=== PATIENT | male | born 1955 | race Caucasian/White ===

== ENCOUNTER 2020-10-06 10:25 | Emergency (ER) | payer BC, SELFPAY ==
[2020-10-06 10:40] VITALS: BP 150/86; PULSE 87; RESP 18; TEMP 36.6; O2SAT 98; BMI 30.5
--- NOTE | 2020-10-06 11:06 | HMH.EDUTC ---
[facility] [place] Clinical Impression: Exposure to COVID-19 virus Disposition: Home, Self-Care Condition on Discharge: Good Instructions: DI for COVID-19 (Suspected or Confirmed ), COVID-19: Testing and Tracing, Preventing the Spread of Coronavirus Discharge Instructions Additional Instructions: *Monitor Temp, Over the counter Motrin or Tylenol as directed/as needed Tylenol every 4 hours and Motrin every 6 hours (as long as your family doctor has told you that you can take it) for fever or pain. and straight to ER if unable to lower temp less than 101.0 after medication given Follow up IMMEDIATELY for new or worsening symptoms or no Noticeable improvement over the next 48-72 hours. 911 for difficulty breathing or swallowing You were tested for today for COVID19 your test result should be back in the next 24-48 hours, you may call to the [facility] to see if your test results are back in the next 48 hours [phone] [facility] hours are 9am-9pm You was given a handout with instructions for Self Quarantine and Self isolation for while you wait on test results and what to do if they are positive If you are positive the Health Dept will be contacting you also Referrals: Lena Callahan APRN [Primary Care Provider] - As needed Time of Disposition: 11:07 Medical Decision Making - Angelito Inquiry Pt receiving controlled substance: No Angelito was queried for this patient: No Vital Signs: 10/06/20 10:40 Temperature 97.8 F Temperature Source Oral Pulse Rate [Right Brachial] 87 Respiratory Rate 18 Blood Pressure [Right Arm] 150/86 H Blood Pressure Mean [Right Arm] 107 Blood Pressure Source [Right Arm] Automatic Cuff Blood Pressure Position [Right Arm] Sitting 02 Sat by Pulse Oximetry 98 Oxygen Delivery Method Room Air Orders (Tests/Meds): ORDERS Category Date Time Status Covid-19 Nasal PCR ([facility]) Routine Lab 10/06/20 10:28 [place] [facility] [place] - General Stated complaint: Covid test Time Seen by Provider: 10/06/20 11:06 Mode of Arrival: Ambulatory Source of Information: Patient Limitations: No Limitations Description of Symptoms (Recalled from Triage Doc. by RN): COVID TEST D/T EXPOSURE; DENIES SYMPTOMS HEENT Symptoms (Recalled from RN notes): No Resp Symptoms (Recalled from RN notes): No Skin Symptoms (Recalled from RN notes): No MS Symptoms (Recalled from RN notes): No Functional Status (Recalled from RN notes): WNL - History of Present Illness Provider Complaint: Darrick states that he was recently around a co-worker that has since tested positive for COVID State that he is not having any symptoms but wanted to get tested - Related Data Allergies Allergy/AdvReac Type Severity Reaction Status Date / Time No Known Allergies Allergy Verified 10/06/20 11:01 - Worker's Comp Is this a Worker's Comp case?: No [facility] History - Hepatitis A Screen Drug use history?: No High risk sexual behaviors?: No History of sexually transmitted infection?: No Currently employed?: No Childcare worker?: No Do you have indoor plumbing?: Yes Do you have electricity?: Yes Attestation statement:: This patient has been screened for Hepatitis A risk factors. I have reviewed the patient's past medical history: Yes - Social History Alcohol Intake: never Occupational Status: other ROS Obtained: Yes All systems reviewed & no additional complaints, Yes Systems reviewed as appropriate & no additional complaints - Constitutional Constitutional: Reports system reviewed and no additional complaints, except as docu, Denies body ache, Denies chills, Denies fever(s), Denies headache(s) - ENT Ears, Nose, Mouth, and Throat: Reports system reviewed and no additional complaints, except as docu, Denies sinus pain, Denies sinus pressure, Denies sore throat - Cardiovascular Cardiovascular: Reports system reviewed and no additional complaints, except as docu Physical Exam - General General appearance: alert, in no apparent distress - EN
[2020-10-06 11:09] VITALS: BP 150/86; PULSE 87; RESP 18; TEMP 36.6; O2SAT 98
== END 2020-10-06 11:10 | disposition home or self-care (01) ==
PROVIDERS: Emergency Provider Nurse Practitioner; PCP Nurse Practitioner Family
DX: Z20.822 Contact with and (suspected) exposure to COVID-19 (principal)
CPT/HCPCS: 99202; G0463; U0003

== ENCOUNTER → 2023-06-03 13:03 | Outpatient (CLI) | payer MEDICARE, OTHER, SELFPAY ==
[2023-06-03 12:12] LABS: Chloride 105 mmol/L (98-107); Sodium 144 mmol/L (136-145)
[2023-06-03 12:14] LABS: Alanine Aminotransferase 28 U/L (12-78); Aspartate Amino Transferase 29 U/L (17-59); Blood Urea Nitrogen 26 mg/dl (9-20); Estimated Glomerular Filt Rate 61 ml/min (>60); GFR (African American) 73 ML/MIN (>60)
[2023-06-03 12:15] LABS: Albumin Level 4.6 g/dl (3.5-5.0); Albumin/Globulin Ratio 1.4 (1.1-1.8); Alkaline Phosphatase 119 U/L (38-126); Bilirubin,Total 0.9 mg/dl (0.2-1.3); Carbon Dioxide 27 mmol/L (22.0-30.0); Chol/HDL Ratio 4.1 (1-3.5); Cholesterol 130 mg/dl (140-200); Globulin 3.4 g/dL (1.3-3.2); Glucose 160 mg/dl (74-100); HDL Cholesterol 32 mg/dl (40-60); Triglycerides 189 mg/dl (30-150); VLDL Cholesterol 38 mg/dL (0-40)
[2023-06-03 12:25] LABS: Anion Gap 17.5 mEq/L (5-15); Potassium 5.5 mmoL/L (3.5-5.1)
[2023-06-03 12:26] LABS: Direct LDL Cholesterol 51.78 mg/dL (100-129)
== END ==
PROVIDERS: PCP Nurse Practitioner Family; Visit Provider Nurse Practitioner Family
DX: E11.9 Type 2 diabetes mellitus without complications (principal); E78.5 Hyperlipidemia, unspecified; I10 Essential (primary) hypertension; Z79.84 Long term (current) use of oral hypoglycemic drugs
CPT/HCPCS: 80053; 80061

== ENCOUNTER → 2023-06-17 09:00 | Outpatient (CLI) | payer MEDICARE, OTHER, SELFPAY ==
[2023-06-17 17:55] LABS: Potassium 5.1 mmoL/L (3.5-5.1)
[2023-06-17 18:48] LABS: Hemoglobin A1C 7.5 % (4.0-6.0)
== END ==
PROVIDERS: PCP Nurse Practitioner Family; Visit Provider Nurse Practitioner Family
DX: E87.5 Hyperkalemia (principal); E11.9 Type 2 diabetes mellitus without complications; Z79.84 Long term (current) use of oral hypoglycemic drugs
CPT/HCPCS: 83036; 84132

== ENCOUNTER 2023-10-06 12:38 | Outpatient (CLI) | payer MEDICARE, OTHER, SELFPAY ==
[2023-10-06 13:25] LABS: Alanine Aminotransferase 31 U/L (12-78); Albumin Level 4.7 g/dl (3.5-5.0); Albumin/Globulin Ratio 1.4 (1.1-1.8); Alkaline Phosphatase 101 U/L (38-126); Anion Gap 14.1 mEq/L (5-15); Aspartate Amino Transferase 28 U/L (17-59); Bilirubin,Total 0.9 mg/dl (0.2-1.3); Blood Urea Nitrogen 23 mg/dl (9-20); Calcium 9.3 mg/dl (8.4-10.2); Carbon Dioxide 22 mmol/L (22.0-30.0); Chloride 103 mmol/L (98-107); Chol/HDL Ratio 4.7 (1-3.5); Cholesterol 170 mg/dl (140-200); Estimated Glomerular Filt Rate 84 ml/min (>60); GFR (African American) 102 ML/MIN (>60); Globulin 3.3 g/dL (1.3-3.2); Glucose 162 mg/dl (74-100); HDL Cholesterol 36 mg/dl (40-60); Potassium 5.1 mmoL/L (3.5-5.1); Sodium 134 mmol/L (136-145); Triglycerides 206 mg/dl (30-150); VLDL Cholesterol 41 mg/dL (0-40)
[2023-10-06 13:41] LABS: Direct LDL Cholesterol 72.24 mg/dL (100-129)
[2023-10-06 13:58] LABS: Hemoglobin A1C 7.3 % (4.0-6.0)
== END 2023-10-06 23:59 ==
LOC: LAB.DROPOF 12:39
PROVIDERS: PCP Nurse Practitioner Family; Visit Provider Nurse Practitioner Family
DX: E11.9 Type 2 diabetes mellitus without complications (principal); E78.5 Hyperlipidemia, unspecified; I10 Essential (primary) hypertension; Z79.84 Long term (current) use of oral hypoglycemic drugs
CPT/HCPCS: 80053; 80061; 83036

== ENCOUNTER 2024-01-11 13:07 | Outpatient (CLI) | payer MEDICARE, OTHER, SELFPAY ==
[2024-01-11 13:17] LABS: Microalbumin < 6.000 mg/L (0-16.7)
[2024-01-11 13:36] LABS: Chloride 107 mmol/L (98-107); Potassium 4.5 mmoL/L (3.5-5.1); Sodium 141 mmol/L (136-145)
[2024-01-11 13:39] LABS: Alanine Aminotransferase 24 U/L (12-78); Albumin Level 4.3 g/dl (3.5-5.0); Albumin/Globulin Ratio 1.5 (1.1-1.8); Alkaline Phosphatase 102 U/L (38-126); Anion Gap 13.5 mEq/L (5-15); Aspartate Amino Transferase 25 U/L (17-59); Bilirubin,Total 0.9 mg/dl (0.2-1.3); Blood Urea Nitrogen 21 mg/dl (9-20); Carbon Dioxide 25 mmol/L (22.0-30.0); Cholesterol 163 mg/dl (140-200); Estimated Glomerular Filt Rate 75 ml/min (>60); GFR (African American) 90 ML/MIN (>60); Globulin 2.9 g/dL (1.3-3.2); Total Protein,Serum 7.2 g/dl (6.3-8.2); Triglycerides 186 mg/dl (30-150); VLDL Cholesterol 37 mg/dL (0-40)
[2024-01-11 13:40] LABS: Calcium 9.4 mg/dl (8.4-10.2); Chol/HDL Ratio 4.4 (1-3.5); Glucose 165 mg/dl (74-100); HDL Cholesterol 37 mg/dl (40-60)
[2024-01-11 13:51] LABS: Direct LDL Cholesterol 75.11 mg/dL (100-129)
[2024-01-11 14:23] LABS: Hemoglobin A1C 7.8 % (4.0-6.0)
== END 2024-01-11 23:59 | disposition home or self-care (01) ==
LOC: LAB.DROPOF 13:08
PROVIDERS: PCP Nurse Practitioner Family; Visit Provider Nurse Practitioner Family
DX: E11.9 Type 2 diabetes mellitus without complications (principal); Z79.84 Long term (current) use of oral hypoglycemic drugs
CPT/HCPCS: 80053; 80061; 82043; 83036

== ENCOUNTER 2024-04-06 13:35 | Outpatient (CLI) | payer MEDICARE, OTHER, SELFPAY ==
[2024-04-06 13:01] LABS: Basophils # 0.1 K/mm3 (0-0.2); Basophils % 0.8 % (0.1-2.0); Eosinophils # 0.2 K/mm3 (0.0-0.4); Eosinophils % 2.4 % (0.1-12.0); Hematocrit 53.3 % (42.0-52.0); Hemoglobin 17.2 g/dL (14.1-18.0); Lymphocytes # 1.7 K/mm3 (0.7-4.5); Lymphocytes % 23.5 % (10-50); Mean Corpuscular HGB Conc 32.2 g/dL (31.8-35.4); Mean Corpuscular Hemoglobin 28.9 pg (27.0-31.2); Mean Corpuscular Volume 89.8 fl (80-94); Mean Platelet Volume 9.1 fl (7.4-10.4); Monocytes # 0.5 K/mm3 (0.1-1.0); Monocytes % 6.1 % (1.7-9.3); Neutrophils # 4.9 K/mm3 (1.8-7.8); Neutrophils % 67.3 % (37.0-80.0); Platelet Count 203 K/mm3 (142-424); Red Blood Count 5.93 M/mm3 (4.60-6.20); Red Cell Distribution Width 15.6 % (11.5-17.5); White Blood Count 7.3 K/mm3 (4.8-10.8)
[2024-04-06 15:00] LABS: Alanine Aminotransferase 37 U/L (12-78); Albumin Level 4.8 g/dl (3.5-5.0); Albumin/Globulin Ratio 1.4 (1.1-1.8); Alkaline Phosphatase 100 U/L (38-126); Anion Gap 13.9 mEq/L (5-15); Aspartate Amino Transferase 33 U/L (17-59); Bilirubin,Total 0.8 mg/dl (0.2-1.3); Blood Urea Nitrogen 22 mg/dl (9-20); Calcium 9.7 mg/dl (8.4-10.2); Carbon Dioxide 26 mmol/L (22.0-30.0); Chloride 106 mmol/L (98-107); Chol/HDL Ratio 5.5 (1-3.5); Cholesterol 182 mg/dl (140-200); Estimated Glomerular Filt Rate 75 ml/min (>60); GFR (African American) 90 ML/MIN (>60); Globulin 3.5 g/dL (1.3-3.2); Glucose 128 mg/dl (74-100); HDL Cholesterol 33 mg/dl (40-60); Potassium 4.9 mmoL/L (3.5-5.1); Sodium 141 mmol/L (136-145); Total Protein,Serum 8.3 g/dl (6.3-8.2); Triglycerides 303 mg/dl (30-150); VLDL Cholesterol 61 mg/dL (0-40)
[2024-04-06 15:11] LABS: Direct LDL Cholesterol 66.64 mg/dL (100-129)
[2024-04-06 15:27] LABS: Prostate Specific Ag Screen 1.1 ng/ml (0.0-4.0)
[2024-04-06 15:33] LABS: Hemoglobin A1C 7.1 % (4.0-6.0)
[2024-04-06 16:49] LABS: Microalbumin < 6.000 mg/L (0-16.7)
== END 2024-04-06 23:59 | disposition home or self-care (01) ==
LOC: LAB.DROPOF 13:35
PROVIDERS: PCP Nurse Practitioner Family; Visit Provider Nurse Practitioner Family
DX: E78.2 Mixed hyperlipidemia (principal); E11.9 Type 2 diabetes mellitus without complications; I10 Essential (primary) hypertension; Z12.5 Encounter for screening for malignant neoplasm of prostate
CPT/HCPCS: 80053; 80061; 82043; 83036; 85025; G0103

== ENCOUNTER 2024-07-06 14:03 | Outpatient (CLI) | payer MEDICARE, OTHER, SELFPAY ==
[2024-07-06 13:07] LABS: Albumin Level 4.6 g/dl (3.5-5.0); Chloride 103 mmol/L (98-107); Sodium 142 mmol/L (136-145)
[2024-07-06 13:08] LABS: Potassium 4.5 mmoL/L (3.5-5.1)
[2024-07-06 13:10] LABS: Alanine Aminotransferase 17 U/L (12-78); Albumin/Globulin Ratio 1.4 (1.1-1.8); Anion Gap 14.5 mEq/L (5-15); Aspartate Amino Transferase 21 U/L (17-59); Blood Urea Nitrogen 14 mg/dl (9-20); Carbon Dioxide 29 mmol/L (22.0-30.0); Estimated Glomerular Filt Rate 75 ml/min (>60); GFR (African American) 90 ML/MIN (>60); Globulin 3.2 g/dL (1.3-3.2); Total Protein,Serum 7.8 g/dl (6.3-8.2)
[2024-07-06 13:11] LABS: Alkaline Phosphatase 80 U/L (38-126); Bilirubin,Total 0.7 mg/dl (0.2-1.3); Calcium 9.8 mg/dl (8.4-10.2); Chol/HDL Ratio 4.3 (1-3.5); Cholesterol 146 mg/dl (140-200); Glucose 135 mg/dl (74-100); HDL Cholesterol 34 mg/dl (40-60); Triglycerides 169 mg/dl (30-150); VLDL Cholesterol 34 mg/dL (0-40)
[2024-07-06 13:22] LABS: Direct LDL Cholesterol 61.05 mg/dL (100-129)
[2024-07-06 13:42] LABS: Thyroid Stimulating Hormone 2.39 uIU/mL (0.465-4.68)
[2024-07-06 14:48] LABS: Microalbumin/Creatinine Ratio 12.3
[2024-07-06 14:50] LABS: Creatinine,Urine Random 56 mg/dL (Not Estab.)
[2024-07-07 12:50] LABS: Hemoglobin A1C 7.2 % (4.0-6.0)
== END 2024-07-06 23:59 | disposition home or self-care (01) ==
LOC: LAB.DROPOF 14:04
PROVIDERS: PCP Nurse Practitioner Family; Visit Provider Nurse Practitioner Family
DX: I10 Essential (primary) hypertension (principal); E78.5 Hyperlipidemia, unspecified; E11.9 Type 2 diabetes mellitus without complications
CPT/HCPCS: 80053; 80061; 82043; 82570; 83036; 84443

== ENCOUNTER 2024-10-17 16:55 | Outpatient (CLI) | payer MEDICARE, OTHER, SELFPAY ==
[2024-10-17 11:49] LABS: Creatinine,Urine Random 51 mg/dL (Not Estab.); Microalbumin < 6.000 mg/L (0-16.7)
[2024-10-17 11:58] LABS: Albumin Level 4.3 g/dl (3.5-5.0); Chloride 105 mmol/L (98-107); Potassium 4.8 mmoL/L (3.5-5.1); Sodium 139 mmol/L (136-145)
[2024-10-17 12:01] LABS: Alanine Aminotransferase 29 U/L (12-78); Albumin/Globulin Ratio 1.5 (1.1-1.8); Alkaline Phosphatase 89 U/L (38-126); Anion Gap 15.8 mEq/L (5-15); Aspartate Amino Transferase 27 U/L (17-59); Bilirubin,Total 0.8 mg/dl (0.2-1.3); Blood Urea Nitrogen 17 mg/dl (9-20); Carbon Dioxide 23 mmol/L (22.0-30.0); Cholesterol 124 mg/dl (140-200); Estimated Glomerular Filt Rate 75 ml/min (>60); GFR (African American) 90 ML/MIN (>60); Globulin 2.8 g/dL (1.3-3.2); Glucose 145 mg/dl (74-100); Total Protein,Serum 7.1 g/dl (6.3-8.2); Triglycerides 228 mg/dl (30-150); VLDL Cholesterol 46 mg/dL (0-40)
[2024-10-17 12:02] LABS: Chol/HDL Ratio 4.8 (1-3.5); HDL Cholesterol 26 mg/dl (40-60)
[2024-10-17 12:12] LABS: Direct LDL Cholesterol 46.29 mg/dL (100-129)
[2024-10-17 12:26] LABS: Hemoglobin A1C 6.9 % (4.0-6.0)
== END 2024-10-17 23:59 | disposition home or self-care (01) ==
LOC: LAB.DROPOF 16:55
PROVIDERS: PCP Nurse Practitioner Family; Visit Provider Nurse Practitioner Family
DX: E11.9 Type 2 diabetes mellitus without complications (principal); I10 Essential (primary) hypertension; E78.2 Mixed hyperlipidemia; E87.5 Hyperkalemia
CPT/HCPCS: 80053; 80061; 82043; 82570; 83036

== ENCOUNTER 2025-01-02 12:42 | Outpatient (CLI) | payer MEDICARE, OTHER, SELFPAY ==
--- NOTE | 2025-01-02 13:00 | CA_ITS ---
FINAL REPORT CLINICAL HISTORY: HLD, HTN, DM, smoker, edema in bilateral foot and ankle. FINDINGS: Right lower extremity, flow velocities (cm per second): Common femoral artery: 163 Proximal SFA: 84 Distal SFA: 44 Proximal PROCESS WORKER: 26 Distal PROCESS WORKER: 16 Peroneal mid: 22 Left lower extremity, flow velocities (cm per second): Common femoral artery: 127 Proximal SFA: 134 Distal SFA: 37 Proximal PROCESS WORKER: 37 Distal PROCESS WORKER: 32 Peroneal mid: 32 There are monophasic waveforms from the distal SFA through the tibial arteries. Findings are consistent with significant adductor canal stenoses bilaterally. IMPRESSION: Monophasic waveforms from the bilateral, distal SFA through the tibial arteries consistent with significant adductor canal stenoses. Consider CTA or catheter directed angiography for further evaluation. Correlate with ankle-brachial indices. Reviewed, Interpreted and Dictated by Jose Smith MD Transcribed by Betzy Mims Authenticated and [facility]
[2025-01-03 14:36] LABS: Albumin Level 4.8 g/dl (3.5-5.0); Chloride 101 mmol/L (98-107); Potassium 5.6 mmoL/L (3.5-5.1); Sodium 142 mmol/L (136-145)
[2025-01-03 14:39] LABS: Alanine Aminotransferase 30 U/L (12-78); Albumin/Globulin Ratio 1.5 (1.1-1.8); Alkaline Phosphatase 95 U/L (38-126); Anion Gap 24.6 mEq/L (5-15); Aspartate Amino Transferase 29 U/L (17-59); Blood Urea Nitrogen 15 mg/dl (9-20); Calcium 9.4 mg/dl (8.4-10.2); Carbon Dioxide 22 mmol/L (22.0-30.0); Cholesterol 145 mg/dl (140-200); Estimated Glomerular Filt Rate 75 ml/min (>60); GFR (African American) 90 ML/MIN (>60); Globulin 3.3 g/dL (1.3-3.2); Glucose 56 mg/dl (74-100); Total Protein,Serum 8.1 g/dl (6.3-8.2); Triglycerides 224 mg/dl (30-150); VLDL Cholesterol 45 mg/dL (0-40)
[2025-01-03 14:40] LABS: Chol/HDL Ratio 4.1 (1-3.5); HDL Cholesterol 35 mg/dl (40-60)
[2025-01-03 15:10] LABS: Thyroid Stimulating Hormone 2.39 uIU/mL (0.465-4.68)
[2025-01-03 15:11] LABS: Microalbumin/Creatinine Ratio 13.1
[2025-01-03 15:31] LABS: Creatinine,Urine Random 63 mg/dL (Not Estab.); Hemoglobin A1C 6.7 % (4.0-6.0)
== END 2025-01-02 23:59 | disposition home or self-care (01) ==
LOC: RT 12:44
PROVIDERS: PCP Nurse Practitioner Family; Visit Provider Nurse Practitioner Family
DX: I73.9 Peripheral vascular disease, unspecified (principal); R60.9 Edema, unspecified; E11.9 Type 2 diabetes mellitus without complications; E78.5 Hyperlipidemia, unspecified; I10 Essential (primary) hypertension
CPT/HCPCS: 80053; 80061; 82043; 82570; 83036; 84443; 93925

== ENCOUNTER 2025-01-10 09:04 | Outpatient (CLI) | payer MEDICARE, OTHER, SELFPAY ==
[2025-01-11 09:50] LABS: Microalbumin/Creatinine Ratio 19.7
[2025-01-11 09:53] LABS: Creatinine,Urine Random 46 mg/dL (Not Estab.)
--- OUTSIDE RECORDS SUMMARY | 2025-04-13 10:45 | XMS_ITS | Encounter Summary ---
Author Organization Healthcare Address [address] [facility] [place] [address] Care Team Providers Care Hot Tamale Worker Name Role Phone Lena Callahan APRN Primary Care Provider +1- [phone] Encounter Details Date Type Department Care Team (Late st Contact Info) Description 02/05/2023 Ophth Exam [facility] [address] [place] [address] Anup Mg MD [address] [place] [address] Social History Tobacco Use Types Packs/Day Years [...] on filedocumented in this encounter Care Teams Hot Tamale Worker Relationship Specialty Start Date End Date Lena Callahan, HULLER OPERATOR [address] [id number] PCP - General 02/05/23 documented as of this encounter
--- OUTSIDE RECORDS SUMMARY | 2025-04-13 10:45 | XMS_ITS | Clinical Summary ---
Author Organization [facility] Address [address] [place] [address] Care Team Providers Care Auditing Control Clerk Name Role Phone Lena Callahan JUAN F Primary Care Provider +1- [phone] Allergies No known active allergies Medications erythromycin [...] 2007 [facility]-Zoster Vaccines (1 of 2) 2007 [id number] Vaccine (3 - season) 2024 10/10/2021, 12/05/2020 [...] Antibody Negative Negative 02/05/2023 6:39 PM EDT [facility] Blood Venous blood specimen / Unknown Venipuncture / Unknown 02/05/2023 5:26 PM EDT 02/05/2023 5:56 PM EDT Suresh Quarles MD LAB BLOOD ORDERABLES Final Result [facility] [address] [place] [address] from Last 3 Months or Most Recently Relevant to Health Maintenance Insurance MEDICARE Care Teams Auditing Control Clerk Relationship Specialty Start Date End Date Lena Callahan APRN [address] [place] [address] PCP - General 02/05/23
== END 2025-01-11 23:59 | disposition home or self-care (01) ==
LOC: LAB.DROPOF 04-13 10:41
PROVIDERS: PCP Nurse Practitioner Family; Visit Provider Nurse Practitioner Family
DX: E11.9 Type 2 diabetes mellitus without complications (principal)
CPT/HCPCS: 82043; 82570

== ENCOUNTER 2025-01-10 13:23 | Outpatient (CLI) | payer MEDICARE, OTHER, SELFPAY ==
[2025-01-10 19:12] LABS: Potassium 4.6 mmoL/L (3.5-5.1)
== END 2025-01-10 23:59 | disposition home or self-care (01) ==
LOC: LAB.DROPOF 01-11 12:31
PROVIDERS: PCP Nurse Practitioner Family; Visit Provider Nurse Practitioner Family
DX: E87.5 Hyperkalemia (principal)
CPT/HCPCS: 84132

== ENCOUNTER 2025-01-23 12:31 | Outpatient (CLI) | payer MEDICARE, OTHER, SELFPAY ==
--- NOTE | 2025-01-23 | CA_ITS ---
APPROVED REPORT EXAM: Comprehensive 2D, Doppler, and color-flow Echocardiogram Charge Weigher: Eboni Cameron RT(R) Ht: 5 ft 7 in Wt: 195lbs BSA: 2.00 BP: 144/74 mmHg Indications: PAD, claudication, abn EKG, smoker, DM, edema, evaluate LV function. Echo Enhancing Agent Indication: Endocardial border delineation Agent(s) / Amount(s) Used: Definity 2 cc 2D Dimensions Left Atrium 4.00 cm M: 3.0 - 4.0 LVEF (Durbin's) 29.00 % M: 52 - 72 LVOT 2.32 cm (M/F) 1.5-2.5 LV Volume 166.50 mL M: 62 - 150 LV Volume Index 83.3 mL/m2 M: 34 - 74 LA Volume 42.30 mL LA Volume Index 21.15 mL/m2 (M/F) 16-34 EF AP4 28.10 % EF AP2 28.5 % EF BP 29.0 % GL Strain -8.9 % M-Mode Dimensions RVDd 2.92 cm (0.9-2.6) LVDd 5.68 cm (3.5-5.7) Ao Diam 3.54 cm (2.0-3.7) LVDs 4.32 cm (3.5-5.7) IVSd 0.97 cm (0.6-1.1) PWd 0.89 cm (0.6-1.1) EF (Teich) 47.10% FS 23.90% EDV (Teich) 158.80 mL ESV (Teich) 84.00 mL LV Diastology E Decel Time 150 (160-240 msec) E/A Ratio 1.2 MED E' 4.6 (>= 7 cm/sec) E'/MED E' Ratio 22.98 (<= 14) LAT E' 5.2 (>= 10 cm/sec) E/LAT E' Ratio 20.33 (<= 14) Mitral Valve MV E Max Geovanny. 106.0 (40-130 cm/s) MV A Velocity 88.0 (40-130 cm/s) E/A Ratio 1.19 MV Decel. Time 150 (160-240 ms) Left Ventricle The left ventricle is normal size. Left ventricular systolic function is severely decreased. There is increased LV wall thickness. There is severe global hypokinesis. The anterior and anterolateral LV dunham are nearly akinetic. Grade 2 diastolic dysfunction is present. LVEF is 25-30%. Right Ventricle The right ventricle is normal size. The right ventricular systolic function is normal. Atria Left atrium is moderately dilated. Right atrium is mildly dilated. There is no Doppler evidence of interatrial shunt. Aortic Valve The aortic valve is mildly thickened. There is no aortic valvular stenosis. Trace aortic regurgitation. Mitral Valve The mitral valve is mildly thickened. No evidence of mitral valve stenosis. Mild to moderate mitral regurgitation. Tricuspid Valve Tricuspid valve is grossly normal in structure and function. Trace tricuspid regurgitation. There is insufficient TR jet to estimate RVSP. Pulmonic Valve The pulmonary valve is normal in structure. Trace pulmonic regurgitation. Great Vessels The aortic root is normal in size. IVC is normal in size and collapses >50% with inspiration. Pericardium There is no pericardial effusion. Other Information Study Quality: Fair Conclusion Severe reduction in LV systolic function (LVEF 25-30%). Grade 2 diastolic dysfunction is present. Akinesis of the anterior and anterolateral LV dunham. Biatrial dilation. Mild to moderate MR. Electronically signed by : Soni Dickerson MD 01/23/2025 16:56:18
[2025-01-23] MEDS: DEFINITY US ECHO CONTRAST 2ML INJ 2 MG IV (13:48)
== END 2025-01-23 23:59 | disposition home or self-care (01) ==
LOC: RT 12:32
PROVIDERS: PCP Nurse Practitioner Family; Visit Provider Nurse Practitioner Family
DX: I51.7 Cardiomegaly (principal); I34.0 Nonrheumatic mitral (valve) insufficiency; R60.0 Localized edema; R94.31 Abnormal electrocardiogram [ECG] [EKG]
CPT/HCPCS: 93306; Q9957

== ENCOUNTER 2025-01-24 11:35 | Observation (INO) | payer MEDICARE, OTHER, SELFPAY ==
[2025-01-24] VITALS (22 sets, daily range): BP systolic 118–148; BP diastolic 61–88; PULSE 70–84; RESP 16–20; TEMP 36.4–36.8; O2SAT 92–99; BMI 30.5
[2025-01-24 08:25] LABS: Basophils % 0.4 % (0.1-2.0); Eosinophils # 0.1 Kmm3 (0.0-0.4); Eosinophils % 1.6 % (0.1-12.0); Hematocrit 51.5 % (42.0-52.0); Hemoglobin 16.1 g/dL (14.1-18.0); Lymphocytes # 1.8 K/mm3 (0.7-4.5); Lymphocytes % 22.9 % (10-50); Mean Corpuscular HGB Conc 31.3 g/dL (31.8-35.4); Mean Corpuscular Hemoglobin 27.2 pg (27.0-31.2); Mean Corpuscular Volume 87.1 fl (80-94); Mean Platelet Volume 9.4 fl (7.4-10.4); Monocytes # 0.6 K/mm3 (0.1-1.0); Monocytes % 7.9 % (1.7-9.3); Neutrophils # 5.4 K/mm3 (1.8-7.8); Neutrophils % 67.1 % (37.0-80.0); Nucleated Red Blood Cells # 0 10^3/uL; Nucleated Red Blood Cells % 0 %; Platelet Count 187 K/mm3 (142-424); Red Blood Count 5.91 M/mm3 (4.60-6.20); Red Cell Distribution Width 16.5 % (11.5-17.5); Red Cell Distribution Width-SD 50.8 fL
[2025-01-24 08:34] LABS: Chloride 105 mmol/L (98-107); Potassium 4.1 mmoL/L (3.5-5.1); Sodium 141 mmol/L (136-145)
[2025-01-24 08:37] LABS: Blood Urea Nitrogen 14 mg/dl (9-20); Creatinine Clearance Estimated 90 mL/min (50-200); Estimated Glomerular Filt Rate 75 ml/min (>60); GFR (African American) 90 ML/MIN (>60)
[2025-01-24 08:38] LABS: Anion Gap 12.1 mEq/L (5-15); Calcium 9.4 mg/dl (8.4-10.2); Carbon Dioxide 28 mmol/L (22.0-30.0); Glucose 152 mg/dl (74-100)
--- NOTE | 2025-01-24 08:42 | SUR.PREOP ---
[facility] Card[facility] speaking with patient on the phone regarding possible left heart cath this date.
--- NOTE | 2025-01-24 08:47 | SUR.PREOP ---
pt's at bedside and updated on plan of care.
--- NOTE | 2025-01-24 09:13 | IR_ITS ---
APPROVED REPORT Patient Location: Outpatient Life Science Teacher: Suresh Ascencio, RT (R) PROCEDURES Left heart catheterization Left ventriculogram Selective coronary angiogram Drug-eluting stent deployment to the proximal LAD Drug-eluting stent deployment to the ostial proximal first diagonal artery INDICATION Coronary artery disease, High risk abnormal Myoview, Ejection fraction 20 to 25%, Informed consent was obtained prior to the procedure. COMPLICATIONS NONE Estimated Blood Loss: LESS THAN 10 ML TECHNIQUE One percent lidocaine used to anesthetize the right anterior aspect of the wrist. The right radial artery was accessed via the Seldinger technique. A 6 Czech sheath was placed in the right radial artery. 2.5 mg of Verapamil, 800 mcg of nitroglycerin, 1mg Lidocaine and 5000 U Heparin were given through the arterial sheath. The 6 Czech JL 3 catheter was also used to perform left heart catheterization, left ventriculogram and selective coronary angiogram. At the end of the diagnostic angiogram therapeutic heparin was administered giving a therapeutic ACT and the guide catheter was placed in the left main artery followed by Choice PT extra-support wire placed down the LAD. A 2.5 x 26 mm Peng frontier stent was deployed at 20 lilia in the proximal to mid LAD reducing the stenosis to 0%. Wire was pulled back and placed into the first diagonal artery and a 2.25 x 38 mm Pneg frontier stent was placed in the ostial segment extending into the midportion of the diagonal artery and deployed at 20 lilia. Excellent angiographic results were obtained with OK-3 flow being present down the LAD and diagonal artery before and after the procedure. At the end of the procedure 800 mcg of intracoronary nitroglycerin was administered and showing excellent results. At the end the procedure the apparatus was removed the sheath was removed and hemostasis was achieved using TR banding patient was transferred to the postop putting in stable condition ANGIOGRAPHIC RESULTS The left main artery Normal The left anterior descending artery Has proximal 60 and 70% stenosis with distal 20 and 30% stenoses. A large caliber first diagonal artery has a proximal 70 to 80% stenosis The circumflex artery Gives rise to a large ramus intermedius which has an ostial proximal 40% stenosis while the diagonal artery is patent The right coronary artery Nondominant and subtotally occluded proximally. The BAI ventriculogram reveals Dilated ventricle ejection fraction 25% The left ventricular end-diastolic pressure Severely to critically elevated at 40 mmHg IMPRESSION Severe left ventricular dysfunction Successful stenting of the proximal LAD severe disease reduced to 0% with 1 drug-eluting stent Successful stenting of a large first taken artery severe disease reduced to 0% with 1 drug-eluting stent Severely elevated LVEDP PLAN 1. Plavix and aspirin 2. LDL less than 55 to be achieved with high intensity statin 3. Patient requires admission due to LV dysfunction and critically elevated LVEDP. He requires full admission with diuresis and implementation of GDMT for systolic heart failure 4. LifeVest prior to discharge home 5. After patient's cardiac status has improved the peripheral artery disease can then be evaluated 6. Cardiac rehabilitation 7. Avoidance of tobacco products 8. Tight diabetes control Electronically signed by : Petey Harrell MD 01/24/2025 11:00:19
[2025-01-24] MEDS: LIDOCAINE 1% 10ML MDV 10 ML IJ (09:57)
[2025-01-24] MEDS: NITROGLYCERIN 800MCG/8ML SYR (CATH LAB) 800 MCG IA (09:57)
[2025-01-24] MEDS: HEPARIN 1,000 UNITS/500ML NS (CATH LAB) 3000 UNIT IV (09:57)
[2025-01-24] MEDS: VERAPAMIL 2.5MG/ML 2ML VIAL 2.5 MG IV (09:58)
[2025-01-24] MEDS: 0.9 % SODIUM CHLORIDE 500 ML 25 ML IV (09:58)
[2025-01-24] MEDS: diphenhydrAMINE 50MG/ML VIAL 50 MG IV (09:58)
[2025-01-24] MEDS: HEPARIN 1,000 UNITS/ML 10ML VIAL (CATH LAB) 5000 UNIT IV (09:59)
[2025-01-24] MEDS: MIDAZOLAM HCL 1MG/ML 5ML VIAL 1 MG IV (10:28)
[2025-01-24] MEDS: FENTANYL 100MCG/2ML VIAL 50 MCG IV (10:28)
[2025-01-24] MEDS: PRASUGREL 10MG TAB 60 MG PO (11:04)
[2025-01-24] MEDS: PROPOFOL 10MG/ML 20ML VIAL 10 MG IV (11:08)
--- NOTE | 2025-01-24 11:13 | HMH.PHAINT1 ---
Pharmacy Intervention Comments: MEDICATION RECONCILIATION COMPLETED ON PATIENT USING EXTERNAL FILL HISTORY FORM PHARMACY AND LIST FROM PCP OFFICE. -RONY LISA, TOÑITOD
--- NOTE | 2025-01-24 11:16 | SUR.PHASEII ---
Dr. Harrell spoke with patients regarding POC.
--- NOTE | 2025-01-24 11:51 | PC.NURSE ---
arrived by melviner from cardiac cath lab manager
--- NOTE | 2025-01-24 12:02 | EXP.HP ---
History of Present Illness *Admission Date: 01/24/25 *Reason for visit:: chest pain, new diagnosis of heart failure *History of present illness: Mr. Hobbs is a 69-year-old male with history of diabetes, hypertension, hyperlipidemia, PAD and tobacco use disorder. He presented originally as a referral to cardiology for PAD. Echo obtained yesterday which showed reduced ejection fraction of 25 to 30%. Decision made to proceed with left heart cath due to wall motion abnormalities. Procedure performed today, tolerated well. Had chronic occlusion of his RCA. Received 1 drug-eluting stent to his proximal LAD and 1 stent to the first diagonal. Noted to have elevated LV end-diastolic pressures. Discussed case with cardiology, request admission for further management with initiation of goal-directed therapy and treatment of his acute heart failure. Patient on room air at time of arrival to the floor. Denies chest pain. No nausea or vomiting. Alert and oriented x 4 [facility] Disclaimer: The information contained in this section may have been updated after the patient was seen, as this information can be updated by other users. Medical History Abnormal ECG Edema Claudication Tendinopathy of right rotator cuff Hypertension Diabetes High cholesterol Surgical History H/O rotator cuff surgery Social History Smoking Status: Current every day smoker tobacco type: cigarettes and cigars alcohol intake: never current occupational status: other Travel in the last 8 weeks?: None Have you lived/traveled outside [place] in past 30 days?: No Contact w/someone who lives/traveled outside US past 30 days?: No Exposure to someone with infectious disease in past 14 days?: No Do you have a fever (greater than 100.4 F or 38 C)?: No Have you tested positive for COVID-19?: No Exposed to someone with COVID-19 in past 14 days?: No Do you have a sore throat?: No Do you have a cough?: No Do you have any weakness?: No Are you experiencing any nausea/vomitting?: No Do you have any diarrhea?: No Are you experiencing any unusual bleeding?: No Do you have any muscle aches/pain?: No Do you have any abdominal pain?: No Are you experiencing loss of taste or smell?: No Other Medical History Have you received the Flu Vaccine for this season: No Have you received the Pneumonia Vaccine: No Review of Systems Review of Systems Review of systems (narrative): 14 point review of systems performed, pertinent positives and negatives as per [facility] Meds Home Medications and Allergies Home Medications ?Medication ?Instructions ?Recorded ?Confirmed ?Type lancets 28 gauge (FreeStyle #100 ea 08/25/23 01/24/25 Rx Lancets) blood-glucose meter (FreeStyle #1 ea 09/23/23 01/24/25 Rx Lite Meter kit) blood-glucose sensor (Dexcom G7 #9 ea 02/24/24 01/24/25 Rx Sensor device) blood-glucose,fire extinguisher sprinkler inspector,cont #1 ea 02/24/24 01/24/25 Rx (Dexcom G7 Urgent Care Technician) blood sugar diagnostic (FreeStyle #100 ea 03/01/24 01/24/25 Rx Lite Strips) aspirin 81 mg chewable tablet 81 mg PO DAILY 30 days #30 tabs 01/24/25 Rx atorvastatin 10 mg tablet 10 mg PO DAILY 01/24/25 01/24/25 History empagliflozin 25 mg-linagliptin 5 1 tab PO DAILY 01/24/25 01/24/25 History mg tablet (Glyxambi) glyburide 5 mg tablet 5 mg PO BID 01/24/25 01/24/25 History losartan 50 mg tablet 50 mg PO DAILY 01/24/25 01/24/25 History metformin 1,000 mg tablet 1,000 mg PO DAILY 01/24/25 01/24/25 History pioglitazone 45 mg tablet 45 mg PO DAILY 01/24/25 01/24/25 History prasugrel HCl 10 mg tablet 10 mg PO DAILY 30 days #30 tabs 01/24/25 Rx (Effient) sertraline 25 mg tablet 25 mg PO DAILY 01/24/25 01/24/25 History New Prescriptions to Start Prescriptions: aspirin Petey Harrell prasugrel HCl [Effient] Petey Harrell Allergies Allergy/AdvReac Type Severity Reaction Status Date / Time semaglutide (From [facility]) Allergy Severe Blurry Verified 01/10/25 13:59 Vision Penicillins Allergy Mild Unknown Verified 01/10/25 13:59 allergy reaction Exam Data for Last 24 hours Vital signs and Labs for Last 24 Hours: Pulse Resp BP Pulse Ox O2 Del Method 73 18 129/83 94 L Room Air 01/24/25 11:45 01/24/25 11:45 01/24/25 11:45 01/24/25 11:45 01/24/25 12:00 Laboratory Results - last 24 hr 01/24/25 08:18: WBC 8.0, RBC 5.91, Hgb 16.1, Hct 51.5, MCV 87.1, MCH 27.2, MCHC 31.3 L, RDW 16.5, Plt Count 187, MPV 9.4, Neut % (Auto) 67.1, Lymph % (Auto) 22.9, [place] % (Auto) 7.9, Eos % (Auto) 1.6, Baso % (Auto) 0.4, Neut # (Auto) 5.4, Lymph # (Auto) 1.8, [place] # (Auto) 0.6, Eos # (Auto) 0.1, Baso # (Auto) 0.0, Sodium 141, Potassium 4.1, Chloride 105, Carbon Dioxide 28, Anion Gap 12.1, BUN 14, Creatinine 1.00, Estimated Creat Clear 90, Estimated GFR 75, Est GFR ( Amer) 90, Glucose 152 H, Calcium 9.4 I & O for Last 24 hours: Intake & Output 01/21/25 01/22/25 01/23/25 01/24/25 23:59 23:59 23:59 23:59 Weight 88.451 kg Constitutional Constitutional: no acute distress, average body habitus, chronically ill appearing and cooperative *Routine HEENT Exam Head: Present normocephalic Eye: Present EOMI and PERRL ENT: Present mucous membranes moist *Routine Neck Exam Neck: Present supple; Absent lymphadenopathy *Routine Respiratory Exam Respiratory: Present CTA bilaterally; Absent rhonchi, stridor, wheezes or crackles *Routine Cardiovascular Exam Cardiovascular: Present RRR *Routine Abdominal Exam Abdominal: Present soft and normoactive bowel sounds; Absent tenderness *Routine Rectal Exam Rectal:: deferred *Routine Genitalia Exam Genitalia:: deferred *Routine Extremities Exam Extremities: Present edema (Trace lower extremity); Absent cyanosis or clubbing *Routine Skin Exam Skin: Present warm; Absent rash *Routine Neurological Exam Neurological: Present alert, oriented X3 and moving all extremities; Absent altered mental status Assessment and Plan *Assessment and plan (1) HFrEF (heart failure with reduced ejection fraction): Status: Acute Category: Medical Code(s): I50.20 - Unspecified systolic (congestive) heart failure (2) CAD (coronary artery disease): Status: Acute Category: Medical Code(s): I25.10 - Atherosclerotic heart disease of [place] coronary artery without angina pectoris (3) Claudication: Status: Acute Category: Medical Code(s): I73.9 - Peripheral vascular disease, unspecified (4) PAD (peripheral artery disease): Status: Acute Category: Medical Code(s): I73.9 - Peripheral vascular disease, unspecified (5) Hyperlipidemia: Status: Acute Qualifiers: Hyperlipidemia type: mixed hyperlipidemia Qualified Code(s): E78.2 - Mixed hyperlipidemia Category: Medical Code(s): E78.5 - Hyperlipidemia, unspecified (6) Hypertension: Status: Acute Qualifiers: Hypertension type: primary hypertension Qualified Code(s): I10 - Essential (primary) hypertension Category: Medical Code(s): I10 - Essential (primary) hypertension (7) Type 2 diabetes mellitus without complication, without long-term current use of insulin: Status: Acute Category: Medical Code(s): E11.9 - Type 2 diabetes mellitus without complications Plan 69-year-old male who presented for elective heart cath after echo yesterday showed reduced EF of 25 to 30%. Found to have multivessel disease. Received stents to proximal LAD and first diagonal. Discussed case with cardiology, request admission for initiation of treatment for new diagnosis of HFrEF. I agreed to admit for further care. Will initiate goal-directed therapy. Necessitating inpatient management. Problems addressed as follows: Acute HFrEF CAD PAD Hypertension - Presented for elective heart cath, found to have significant disease. Received drug-eluting stent to his proximal LAD and first diagonal. Had chronic RCA occlusion not amenable to stenting or reperfusion. -Initiate aspirin 81 mg daily and prasugrel 10 mg daily - Echo obtained yesterday with EF 25 to 30%. Grade 2 diastolic dysfunction. Significant akinesis of the anterior and anterolateral LV dunham. -Will administer 1 dose of Lasix IV 40 mg. Monitor for response. Will schedule 40 mg IV daily. -Initiate spironolactone 25 mg daily -Initiate Jardiance 25 mg daily due to diabetes and heart failure -Initiate Entresto 24/26 mg twice daily -holding beta-wanda in the setting of severely reduced EF -Cardiology consulted, appreciate their recommendations. Patient will need LifeVest prior to discharge. - Initiate Lipitor 40 mg nightly -Patient was initially being worked up for PAD, will need to return to [facility] for angiography and bilateral runoff of lower extremities after stabilization of acute HFrEF and tolerance of goal-directed therapy Hyperlipidemia: LDL 56, goal less than 55, initiate Lipitor 40 mg nightly. Diabetes: - A1c 6.5, controlled on current oral regimen. Continue sliding scale insulin with fingersticks ACHS. Holding home glyburide, glyxambi, pioglitazone and metformin. Will consider alternate regimen at discharge - Hemoglobin normal at 16.1, kidney function normal with BUN 14, creatinine 1. Potassium 4.1. Repeat CBC, CMP, magnesium ordered for the morning Continue Zoloft 25 mg daily for mood disorder Full code Heparinized in [facility] Diabetic diet
[2025-01-24 12:53] LABS: Hemoglobin A1C 6.5 % (4.0-6.0)
[2025-01-24] MEDS: EMPAGLIFLOZIN 10MG TABLET 10 MG PO (13:02)
--- NOTE | 2025-01-24 13:12 | EXP.CARD.CON ---
History of Present Illness History of Present Illness Consult date: 01/24/25 Requesting physician: Ozzy Diaz Chief complaint: New HFrEF History of present illness: This is a 69-year-old white male with past medical history of hypertension, hyperlipidemia, diabetes mellitus, peripheral artery disease and tobacco use who presented to [facility] today. Patient was originally scheduled for a bilateral aortogram with runoff to evaluate for peripheral artery disease in the setting of abnormal arterial duplexes. Patient also had an echocardiogram which showed a new ejection fraction of 25 to 30% with grade 2 diastolic dysfunction and akinesis of the anterior and anterior lateral LV dunham concerning for multivessel coronary artery disease. Arterial runoff was put on hold in order to proceed with left heart catheterization . Patient received 1 TESFAYE to proximal LAD and 1 TESFAYE to first diagonal. LVEDP was noted to be severely elevated. Patient was admitted for initiation of guideline directed medical therapy for HFrEF and for LifeVest placement. Upon examination patient is sitting comfortably on the side of the bed and denies chest pain or shortness of breath. He denies orthopnea or lower extremity edema but does endorse bilateral lower extremity pain. [facility] Disclaimer: The information contained in this section may have been updated after the patient was seen, as this information can be updated by other users. Medical History Abnormal ECG Edema Claudication Tendinopathy of right rotator cuff Hypertension Diabetes High cholesterol Surgical History H/O rotator cuff surgery Social History (Updated 01/24/25 @ 12:05 by Monet Ordoñez RN) Smoking Status: Current every day smoker tobacco type: cigarettes and cigars alcohol intake: never current occupational status: other Travel in the last 8 weeks?: None Have you lived/traveled outside US in past 30 days?: No Contact w/someone who lives/traveled outside US past 30 days?: No Exposure to someone with infectious disease in past 14 days?: No Do you have a fever (greater than 100.4 F or 38 C)?: No Have you tested positive for COVID-19?: No Exposed to someone with COVID-19 in past 14 days?: No Do you have a sore throat?: No Do you have a cough?: No Do you have any weakness?: No Are you experiencing any nausea/vomitting?: No Do you have any diarrhea?: No Are you experiencing any unusual bleeding?: No Do you have any muscle aches/pain?: No Do you have any abdominal pain?: No Are you experiencing loss of taste or smell?: No Review of Systems Review of Systems Review of systems:: pertinent systems reviewed and negative unless documented below *Musculoskeletal Comments: Bilateral Leg claudication Exam Data for Last 24 hours Vital signs and Labs for Last 24 Hours: Pulse Resp BP Pulse Ox O2 Del Method 73 18 129/83 94 L Room Air 01/24/25 11:45 01/24/25 11:45 01/24/25 11:45 01/24/25 11:45 01/24/25 12:00 Laboratory Results - last 24 hr 01/24/25 08:18: WBC 8.0, RBC 5.91, Hgb 16.1, Hct 51.5, MCV 87.1, MCH 27.2, MCHC 31.3 L, RDW 16.5, Plt Count 187, MPV 9.4, Neut % (Auto) 67.1, Lymph % (Auto) 22.9, [place] % (Auto) 7.9, Eos % (Auto) 1.6, Baso % (Auto) 0.4, Neut # (Auto) 5.4, Lymph # (Auto) 1.8, [place] # (Auto) 0.6, Eos # (Auto) 0.1, Baso # (Auto) 0.0, Sodium 141, Potassium 4.1, Chloride 105, Carbon Dioxide 28, Anion Gap 12.1, BUN 14, Creatinine 1.00, Estimated Creat Clear 90, Estimated GFR 75, Est GFR ( Amer) 90, Glucose 152 H, Hemoglobin A1c 6.5 H, Calcium 9.4 I & O for Last 24 hours: Intake & Output 01/21/25 01/22/25 01/23/25 01/24/25 23:59 23:59 23:59 23:59 Intake Total 510 / 510 Balance 510 / 510 Weight 195 lb Constitutional Constitutional: no acute distress *Routine Respiratory Exam Respiratory: Present CTA bilaterally and symmetric chest movement *Routine Cardiovascular Exam Cardiovascular: Present RRR, Normal S1 and Normal S2 *Routine Abdominal Exam Abdominal: Present soft and normoactive bowel sounds; Absent tenderness *Routine Extremities Exam Extremities: Present full ROM and normal capillary refill; Absent edema *Routine Skin Exam Skin: Present intact, dry and warm Detailed Neck Exam: Thyroids Thyroid: Absent bruit Meds Home Medications and Allergies Home Medications ?Medication ?Instructions ?Recorded ?Confirmed ?Type lancets 28 gauge (FreeStyle #100 ea 08/25/23 01/24/25 Rx Lancets) blood-glucose meter (FreeStyle #1 ea 09/23/23 01/24/25 Rx Lite Meter kit) blood-glucose sensor (Dexcom G7 #9 ea 02/24/24 01/24/25 Rx Sensor device) blood-glucose,glazier supervisor,cont #1 ea 02/24/24 01/24/25 Rx (Dexcom G7 Admissions Supervisor) blood sugar diagnostic (FreeStyle #100 ea 03/01/24 01/24/25 Rx Lite Strips) aspirin 81 mg chewable tablet 81 mg PO DAILY 30 days #30 tabs 01/24/25 Rx atorvastatin 10 mg tablet 10 mg PO DAILY 01/24/25 01/24/25 History empagliflozin 25 mg-linagliptin 5 1 tab PO DAILY 01/24/25 01/24/25 History mg tablet (Glyxambi) glyburide 5 mg tablet 5 mg PO BID 01/24/25 01/24/25 History losartan 50 mg tablet 50 mg PO DAILY 01/24/25 01/24/25 History metformin 1,000 mg tablet 1,000 mg PO DAILY 01/24/25 01/24/25 History pioglitazone 45 mg tablet 45 mg PO DAILY 01/24/25 01/24/25 History prasugrel HCl 10 mg tablet 10 mg PO DAILY 30 days #30 tabs 01/24/25 Rx (Effient) sertraline 25 mg tablet 25 mg PO DAILY 01/24/25 01/24/25 History New Prescriptions to Start Prescriptions: aspirin Petey Harrell prasugrel HCl [Effient] Petey Harrell Allergies Allergy/AdvReac Type Severity Reaction Status Date / Time semaglutide (From [facility]) Allergy Severe Blurry Verified 01/10/25 13:59 Vision Penicillins Allergy Mild Unknown Verified 01/10/25 13:59 allergy reaction Assessment and Plan *Assessment and plan (1) HFrEF (heart failure with reduced ejection fraction): Status: Acute Category: Medical Code(s): I50.20 - Unspecified systolic (congestive) heart failure (2) Claudication: Status: Acute Category: Medical Code(s): I73.9 - Peripheral vascular disease, unspecified (3) PAD (peripheral artery disease): Status: Acute Category: Medical Code(s): I73.9 - Peripheral vascular disease, unspecified (4) Hyperlipidemia: Status: Acute Qualifiers: Hyperlipidemia type: mixed hyperlipidemia Qualified Code(s): E78.2 - Mixed hyperlipidemia Category: Medical Code(s): E78.5 - Hyperlipidemia, unspecified (5) Hypertension: Status: Acute Qualifiers: Hypertension type: primary hypertension Qualified Code(s): I10 - Essential (primary) hypertension Category: Medical Code(s): I10 - Essential (primary) hypertension (6) CAD (coronary artery disease): Status: Acute Category: Medical Code(s): I25.10 - Atherosclerotic heart disease of [place] coronary artery without angina pectoris Plan New HFrEF Mild to moderate MR Echo 12/2024: EF 25 to 30%, grade 2 diastolic dysfunction, akinesis of the anterior and anterolateral LV dunham biatrial dilation mild to moderate MR Severely elevated LVEDP noted on left heart catheterization today Patient needs to be initiated on guideline directed medical therapy for heart failure Start Jardiance and Entresto. No beta-wanda at this time due to severely reduced ejection fraction. Patient needs LifeVest prior to discharge home Coronary artery disease Claudication TESFAYE to proximal LAD and first first diagonal with a severely elevated LVEDP noted Continue Plavix, aspirin and statin Peripheral artery disease Bilateral lower extremity claudication Arterial duplex for 2024: Monophasic waveform from the bilateral distal SFA through the tibial arteries consistent with significant abductor canal stenosis bilaterally Dr. Harrell would like patient to return to [facility] for angiogram with bilateral runoff after patient has been started on GDMT for HFrEF Hypertension Stop losartan and start Entresto 24/26 mg p.o. twice daily Hyperlipidemia LDL goal less than 55, LDL is 56. Continue atorvastatin but increase to 40 mg p.o. daily 01/24/2025: Patient needs to be started on guideline directed medical therapy for HFrEF. Needs LifeVest prior to discharge. LifeVest order placed. Cardiac meds: Aspirin 81 mg p.o. daily Plavix 75 mg p.o. daily Atorvastatin 40 mg p.o. daily Entresto 24/26 mg p.o. twice daily
[2025-01-24] MEDS: IOPAMIDOL-370 (76%);100ML BOTTLE 175 ML IV (16:17)
[2025-01-24 16:22] LABS: CATHL Activated Clotting Time 333 SEC (74-125)
[2025-01-24 16:32] LABS: POC Glucose,Bedside 202 (70-110)
--- NOTE | 2025-01-24 16:43 | PC.NURSE ---
PT HAS DONE WELL THIS SHIFT. REMAINS ON ROOM AIR. A&O X4. AMBULATING W/O DIFFICULTY IN THE ROOM. ADEQUATE URINE OUTPUT THIS SHIFT. NO REPORTS OF CHEST PAIN OR SHORTNESS OF BREATH. RADIAL CATH SITE IS C/D/I WITH 4X4 AND TEGADERM DRESSING. HE HAS FAMILY AT BEDSIDE. VSS.
[2025-01-24] MEDS: FUROSEMIDE 40MG/4ML VIAL 40 MG IV (17:06)
[2025-01-24] MEDS: ATORVASTATIN 40MG TABLET 40 MG PO (20:36)
[2025-01-24] MEDS: SACUBITRIL/VALSARTAN 24-26MG TABLET 1 EACH PO (20:36)
[2025-01-25] VITALS: PULSE 90
[2025-01-25 03:33] LABS: POC Glucose,Bedside 143 (70-110)
[2025-01-25 04:00] VITALS: BP 116/69; PULSE 80; PULSE 86; RESP 17; TEMP 36.7; O2SAT 95; BMI 30.6
[2025-01-25 06:04] LABS: POC Glucose,Bedside 191 (70-110)
[2025-01-25 06:19] LABS: Basophils % 0.3 % (0.1-2.0); Eosinophils # 0.1 Kmm3 (0.0-0.4); Eosinophils % 1.4 % (0.1-12.0); Hematocrit 50.8 % (42.0-52.0); Hemoglobin 16.3 g/dL (14.1-18.0); Lymphocytes # 1.7 K/mm3 (0.7-4.5); Lymphocytes % 16.8 % (10-50); Mean Corpuscular HGB Conc 32.1 g/dL (31.8-35.4); Mean Corpuscular Hemoglobin 27.3 pg (27.0-31.2); Mean Corpuscular Volume 85.2 fl (80-94); Mean Platelet Volume 9.5 fl (7.4-10.4); Monocytes # 0.8 K/mm3 (0.1-1.0); Monocytes % 8.3 % (1.7-9.3); Neutrophils # 7.2 K/mm3 (1.8-7.8); Nucleated Red Blood Cells # 0 10^3/uL; Nucleated Red Blood Cells % 0 %; Platelet Count 207 K/mm3 (142-424); Red Blood Count 5.96 M/mm3 (4.60-6.20); Red Cell Distribution Width 16.3 % (11.5-17.5); Red Cell Distribution Width-SD 48.5 fL; White Blood Count 9.8 K/mm3 (4.8-10.8)
[2025-01-25 06:21] LABS: Albumin Level 4.3 g/dl (3.5-5.0); Chloride 102 mmol/L (98-107)
[2025-01-25 06:22] LABS: Potassium 4.1 mmoL/L (3.5-5.1); Sodium 135 mmol/L (136-145)
[2025-01-25 06:24] LABS: Alanine Aminotransferase 22 U/L (12-78); Alkaline Phosphatase 93 U/L (38-126); Anion Gap 8.1 mEq/L (5-15); Aspartate Amino Transferase 30 U/L (17-59); Bilirubin,Total 0.9 mg/dl (0.2-1.3); Blood Urea Nitrogen 16 mg/dl (9-20); Carbon Dioxide 29 mmol/L (22.0-30.0); Creatinine Clearance Estimated 82 mL/min (50-200); Estimated Glomerular Filt Rate 67 ml/min (>60); GFR (African American) 81 ML/MIN (>60)
[2025-01-25 06:25] LABS: Albumin/Globulin Ratio 1.5 (1.1-1.8); Calcium 9.1 mg/dl (8.4-10.2); Globulin 2.9 g/dL (1.3-3.2); Glucose 173 mg/dl (74-100); Total Protein,Serum 7.2 g/dl (6.3-8.2)
--- NOTE | 2025-01-25 07:25 | EXP.DC.SUM ---
General Admission date:: 01/24/25 Discharge date: 01/25/25 HPI HPI HPI: Mr. Hobbs is a 69-year-old male with history of diabetes, hypertension, hyperlipidemia, PAD and tobacco use disorder. He presented originally as a referral to cardiology for PAD. Echo obtained yesterday which showed reduced ejection fraction of 25 to 30%. Decision made to proceed with left heart cath due to wall motion abnormalities. Procedure performed today, tolerated well. Had chronic occlusion of his RCA. Received 1 drug-eluting stent to his proximal LAD and 1 stent to the first diagonal. Noted to have elevated LV end-diastolic pressures. Discussed case with cardiology, request admission for further management with initiation of goal-directed therapy and treatment of his acute heart failure. Patient on room air at time of arrival to the floor. Denies chest pain. No nausea or vomiting. Alert and oriented x 4 Hospital Course Hospital Course Hospital Course: New HFrEF Mild to moderate MR Echo 12/2024: EF 25 to 30%, grade 2 diastolic dysfunction, akinesis of the anterior and anterolateral LV dunham biatrial dilation mild to moderate MR Severely elevated LVEDP noted on left heart catheterization today Patient needs to be initiated on guideline directed medical therapy for heart failure Start Jardiance and Entresto. No beta-wnada at this time due to severely reduced ejection fraction. Patient needs LifeVest prior to discharge home Coronary artery disease Claudication TESFAYE to proximal LAD and first first diagonal with a severely elevated LVEDP noted Continue Plavix, aspirin and statin Peripheral artery disease Bilateral lower extremity claudication Arterial duplex for 2024: Monophasic waveform from the bilateral distal SFA through the tibial arteries consistent with significant abductor canal stenosis bilaterally Dr. Harrell would like patient to return to [facility] for angiogram with bilateral runoff after patient has been started on GDMT for HFrEF Hypertension Stop losartan and start Entresto 24/26 mg p.o. twice daily Hyperlipidemia LDL goal less than 55, LDL is 56. Continue atorvastatin but increase to 40 mg p.o. daily 01/24/2025: Patient needs to be started on guideline directed medical therapy for HFrEF. Needs LifeVest prior to discharge. LifeVest order placed. Cardiac meds: Aspirin 81 mg p.o. daily Plavix 75 mg p.o. daily Atorvastatin 40 mg p.o. daily Entresto 24/26 mg p.o. twice daily Exam Data for Last 24 hours Vital signs and Labs for Last 24 Hours: Temp Pulse Resp BP Pulse Ox O2 Del Method 98.0 F 86 17 116/69 95 Room Air 01/25/25 04:00 01/25/25 04:00 01/25/25 04:00 01/25/25 04:00 01/25/25 04:00 01/25/25 06:32 Laboratory Results - last 24 hr 01/24/25 08:18: WBC 8.0, RBC 5.91, Hgb 16.1, Hct 51.5, MCV 87.1, MCH 27.2, MCHC 31.3 L, RDW 16.5, Plt Count 187, MPV 9.4, Neut % (Auto) 67.1, Lymph % (Auto) 22.9, [place] % (Auto) 7.9, Eos % (Auto) 1.6, Baso % (Auto) 0.4, Neut # (Auto) 5.4, Lymph # (Auto) 1.8, [place] # (Auto) 0.6, Eos # (Auto) 0.1, Baso # (Auto) 0.0, Sodium 141, Potassium 4.1, Chloride 105, Carbon Dioxide 28, Anion Gap 12.1, BUN 14, Creatinine 1.00, Estimated Creat Clear 90, Estimated GFR 75, Est GFR ( Amer) 90, Glucose 152 H, Hemoglobin A1c 6.5 H, Calcium 9.4 01/24/25 10:35: Activated Clotting Time 333 H* 01/24/25 16:25: POC Glucose 202 H 01/24/25 19:57: POC Glucose 143 H 01/25/25 05:35: WBC 9.8, RBC 5.96, Hgb 16.3, Hct 50.8, MCV 85.2, MCH 27.3, MCHC 32.1, RDW 16.3, Plt Count 207, MPV 9.5, Neut % (Auto) 73.0, Lymph % (Auto) 16.8, [place] % (Auto) 8.3, Eos % (Auto) 1.4, Baso % (Auto) 0.3, Neut # (Auto) 7.2, Lymph # (Auto) 1.7, [place] # (Auto) 0.8, Eos # (Auto) 0.1, Baso # (Auto) 0.0, Sodium 135 L, Potassium 4.1, Chloride 102, Carbon Dioxide 29, Anion Gap 8.1, BUN 16, Creatinine 1.10, Estimated Creat Clear 82, Estimated GFR 67, Est GFR ( Amer) 81, Glucose 173 H, Calcium 9.1, Magnesium 2.0, Total Bilirubin 0.9, AST 30, ALT 22, Alkaline Phosphatase 93, Total Protein 7.2, Albumin 4.3, Globulin 2.9, Albumin/Globulin Ratio 1.5 01/25/25 05:52: POC Glucose 191 H I & O for Last 24 hours: Intake & Output 01/22/25 01/23/25 01/24/25 01/25/25 23:59 23:59 23:59 23:59 Intake Total 1374 / 1614 240 / 240 Output Total 0 / 0 0 / 0 Balance 1374 / 1614 240 / 240 Weight 88.451 kg 88.451 kg Results Data Completed and Pending Labs on day of discharge: Labs from last 24 hours 01/25/25 01/25/25 01/24/25 05:52 05:35 19:57 WBC 9.8 RBC 5.96 Hgb 16.3 Hct 50.8 MCV 85.2 MCH 27.3 MCHC 32.1 RDW 16.3 Plt Count 207 MPV 9.5 Neut % (Auto) 73.0 Lymph % (Auto) 16.8 [place] % (Auto) 8.3 Eos % (Auto) 1.4 Baso % (Auto) 0.3 Neut # (Auto) 7.2 Lymph # (Auto) 1.7 [place] # (Auto) 0.8 Eos # (Auto) 0.1 Baso # (Auto) 0.0 Activated Clotting Time Sodium 135 L Potassium 4.1 Chloride 102 Carbon Dioxide 29 Anion Gap 8.1 BUN 16 Creatinine 1.10 Estimated Creat Clear 82 Estimated GFR 67 Est GFR ( Amer) 81 Glucose 173 H POC Glucose 191 H 143 H Hemoglobin A1c Calcium 9.1 Magnesium 2.0 Total Bilirubin 0.9 AST 30 ALT 22 Alkaline Phosphatase 93 Total Protein 7.2 Albumin 4.3 Globulin 2.9 Albumin/Globulin Ratio 1.5 01/24/25 01/24/25 01/24/25 16:25 10:35 08:18 WBC 8.0 RBC 5.91 Hgb 16.1 Hct 51.5 MCV 87.1 MCH 27.2 MCHC 31.3 L RDW 16.5 Plt Count 187 MPV 9.4 Neut % (Auto) 67.1 Lymph % (Auto) 22.9 [place] % (Auto) 7.9 Eos % (Auto) 1.6 Baso % (Auto) 0.4 Neut # (Auto) 5.4 Lymph # (Auto) 1.8 [place] # (Auto) 0.6 Eos # (Auto) 0.1 Baso # (Auto) 0.0 Activated Clotting Time 333 H* Sodium 141 Potassium 4.1 Chloride 105 Carbon Dioxide 28 Anion Gap 12.1 BUN 14 Creatinine 1.00 Estimated Creat Clear 90 Estimated GFR 75 Est GFR ( Amer) 90 Glucose 152 H POC Glucose 202 H Hemoglobin A1c 6.5 H Calcium 9.4 Magnesium Total Bilirubin AST ALT Alkaline Phosphatase Total Protein Albumin Globulin Albumin/Globulin Ratio DS: Diagnosis Discharge Diagnosis (1) HFrEF (heart failure with reduced ejection fraction): Status: Acute Code(s): I50.20 - Unspecified systolic (congestive) heart failure (2) CAD (coronary artery disease): Status: Acute Code(s): I25.10 - Atherosclerotic heart disease of [place] coronary artery without angina pectoris (3) Claudication: Status: Acute Code(s): I73.9 - Peripheral vascular disease, unspecified (4) PAD (peripheral artery disease): Status: Acute Code(s): I73.9 - Peripheral vascular disease, unspecified (5) Hyperlipidemia: Status: Acute Code(s): E78.5 - Hyperlipidemia, unspecified Qualifiers: Hyperlipidemia type: mixed hyperlipidemia Qualified Code(s): E78.2 - Mixed hyperlipidemia (6) Hypertension: Status: Acute Code(s): I10 - Essential (primary) hypertension Qualifiers: Hypertension type: primary hypertension Qualified Code(s): I10 - Essential (primary) hypertension (7) Type 2 diabetes mellitus without complication, without long-term current use of insulin: Status: Acute Code(s): E11.9 - Type 2 diabetes mellitus without complications Meds Home Medications and Allergies Home Medications ?Medication ?Instructions ?Recorded ?Confirmed ?Type lancets 28 gauge (FreeStyle #100 ea 08/25/23 01/24/25 Rx Lancets) blood-glucose meter (FreeStyle #1 ea 09/23/23 01/24/25 Rx Lite Meter kit) blood-glucose sensor (Dexcom G7 #9 ea 02/24/24 01/24/25 Rx Sensor device) blood-glucose,manufacturing area manager,cont #1 ea 02/24/24 01/24/25 Rx (Dexcom G7 Graphite Grinder) blood sugar diagnostic (FreeStyle #100 ea 03/01/24 01/24/25 Rx Lite Strips) aspirin 81 mg chewable tablet 81 mg PO DAILY 30 days #30 tabs 01/24/25 Rx empagliflozin 25 mg-linagliptin 5 1 tab PO DAILY 01/24/25 01/24/25 History mg tablet (Glyxambi) metformin 1,000 mg tablet 1,000 mg PO DAILY 01/24/25 01/24/25 History sertraline 25 mg tablet 25 mg PO DAILY 01/24/25 01/24/25 History atorvastatin 40 mg tablet 40 mg PO HS 30 days #30 tabs 01/25/25 Rx clopidogrel 75 mg tablet 75 mg PO DAILY 30 days #30 tabs 01/25/25 Rx sacubitril 24 mg-valsartan 26 mg 1 tab PO BID 30 days #60 tabs 01/25/25 Rx tablet (Entresto) spironolactone 25 mg tablet 25 mg PO DAILY 30 days #30 tabs 01/25/25 Rx New Prescriptions to Start Prescriptions: Petey Santos James clopidogrel Ozzy Diaz sacubitril-valsartan [Entresto] Ozzy Diaz spironolactone Ozzy Diaz Allergies Allergy/AdvReac Type Severity Reaction Status Date / Time semaglutide (From [facility]) Allergy Severe Blurry Verified 01/10/25 13:59 Vision Penicillins Allergy Mild Unknown Verified 01/10/25 13:59 allergy reaction Discharge Plan Disposition Patient Disposition: Home, Self-Care Condition: Fair Follow up Plan Follow up with: Lena Callahan APRN [Primary Care Provider] - 02/07/25 9:30 am Petey Harrell MD [Staff Physician] - 02/01/25 10:15 am Prescriptions/Medication Reconciliation: New aspirin 81 mg Tablet,Chewable 81 mg PO DAILY 30 Days Qty: 30 6RF atorvastatin 40 mg Tablet 40 mg PO HS 30 Days Qty: 30 0RF clopidogrel 75 mg Tablet 75 mg PO DAILY 30 Days Qty: 30 0RF spironolactone 25 mg Tablet 25 mg PO DAILY 30 Days Qty: 30 0RF Entresto 24-26 mg Tablet 1 tab PO BID 30 Days Qty: 60 0RF Continued sertraline 25 mg tablet 25 mg PO DAILY Glyxambi 25-5 mg tablet 1 tab PO DAILY metformin 1,000 mg tablet 1,000 mg PO DAILY Discontinued losartan 50 mg tablet 50 mg PO DAILY atorvastatin 10 mg tablet 10 mg PO DAILY glyburide 5 mg tablet 5 mg PO BID pioglitazone 45 mg tablet 45 mg PO DAILY No Action (DME) lancets [FreeStyle Lancets] 28 gauge misc See Rx Instructions .Route Qty: 100 0RF Rx Instructions: As directed daily (DME) blood-glucose meter [FreeStyle Lite Meter] Kit See Rx Instructions .Route Qty: 1 0RF Rx Instructions: As directed (DME) Dexcom G7 Graphite Grinder Misc See Rx Instructions .Route Qty: 1 0RF Rx Instructions: As directed (DME) Dexcom G7 Sensor Device See Rx Instructions .Route Qty: 9 3RF Rx Instructions: As directed, change every 10 days (DME) FreeStyle Lite Strips Strip See Rx Instructions .Route Qty: 100 3RF Rx Instructions: As directed Problem Reconciliation Problems Reviewed?: Yes Patient Discharge Instructions ACTIVITY: Continue current activity DIET: continue same diet Patient Instructions: Cardiac Catheterization, DI for Peripheral Vascular (Arterial) Disease, DI for Surgical Site Infection, DI for Moderate Sedation, Cardiology Catheterization Patient / Family Discharge Instructions, Stop Light Heart Failure Print Language: Romansh Providers Primary Care Provider: Lena Callahan Admit Provider: Patrice Kearney Attending Provider: Patrice Kearney
[2025-01-25 08:00] VITALS: BP 120/69; PULSE 76; PULSE 80; RESP 16; TEMP 36.6; O2SAT 95
[2025-01-25] MEDS: ASPIRIN EC 81MG TABLET 81 MG PO (08:09)
[2025-01-25] MEDS: SERTRALINE 50MG TABLET 25 MG PO (08:09)
[2025-01-25] MEDS: SACUBITRIL/VALSARTAN 24-26MG TABLET 1 EACH PO (08:09)
[2025-01-25] MEDS: FUROSEMIDE 40MG/4ML VIAL 40 MG IV (08:09)
[2025-01-25] MEDS: SPIRONOLACTONE 25MG TABLET 25 MG PO (08:10)
[2025-01-25] MEDS: CLOPIDOGREL 75MG TAB 75 MG PO (08:10)
[2025-01-25] MEDS: EMPAGLIFLOZIN 10MG TABLET 10 MG PO (08:10)
[2025-01-25 10:02] LABS: POC Glucose,Bedside 165 (70-110)
[2025-01-25 12:00] VITALS: PULSE 90
--- NOTE | 2025-01-25 12:49 | EXP.CARD.PN ---
Subjective Subjective Date: 01/25/25 Time: 08:00 Principal diagnosis: CAD and HFrEF Interval history: Doing well this morning. Denies chest pain or shortness of breath. Morning labs reviewed and stable. Exam Data for Last 24 hours Vital signs and Labs for Last 24 Hours: Temp Pulse Resp BP Pulse Ox O2 Del Method 97.8 F 76 16 120/69 95 Room Air 01/25/25 08:00 01/25/25 08:00 01/25/25 08:00 01/25/25 08:00 01/25/25 08:00 01/25/25 10:02 Laboratory Results - last 24 hr 01/24/25 08:18: Hemoglobin A1c 6.5 H 01/24/25 10:35: Activated Clotting Time 333 H* 01/24/25 16:25: POC Glucose 202 H 01/24/25 19:57: POC Glucose 143 H 01/25/25 05:35: WBC 9.8, RBC 5.96, Hgb 16.3, Hct 50.8, MCV 85.2, MCH 27.3, MCHC 32.1, RDW 16.3, Plt Count 207, MPV 9.5, Neut % (Auto) 73.0, Lymph % (Auto) 16.8, [place] % (Auto) 8.3, Eos % (Auto) 1.4, Baso % (Auto) 0.3, Neut # (Auto) 7.2, Lymph # (Auto) 1.7, [place] # (Auto) 0.8, Eos # (Auto) 0.1, Baso # (Auto) 0.0, Sodium 135 L, Potassium 4.1, Chloride 102, Carbon Dioxide 29, Anion Gap 8.1, BUN 16, Creatinine 1.10, Estimated Creat Clear 82, Estimated GFR 67, Est GFR ( Amer) 81, Glucose 173 H, Calcium 9.1, Magnesium 2.0, Total Bilirubin 0.9, AST 30, ALT 22, Alkaline Phosphatase 93, Total Protein 7.2, Albumin 4.3, Globulin 2.9, Albumin/Globulin Ratio 1.5 01/25/25 05:52: POC Glucose 191 H 01/25/25 09:55: POC Glucose 165 H I & O for Last 24 hours: Intake & Output 01/22/25 01/23/25 01/24/25 01/25/25 23:59 23:59 23:59 23:59 Intake Total 1374 / 1614 690 / 690 Output Total 0 / 0 0 / 0 Balance 1374 / 1614 690 / 690 Weight 195 lb 195 lb Constitutional Constitutional: no acute distress *Routine Respiratory Exam Respiratory: Present CTA bilaterally and symmetric chest movement *Routine Cardiovascular Exam Cardiovascular: Present RRR, Normal S1 and Normal S2 *Routine Abdominal Exam Abdominal: Present soft and normoactive bowel sounds; Absent tenderness *Routine Extremities Exam Extremities: Present full ROM and normal capillary refill; Absent edema *Routine Skin Exam Skin: Present intact, dry and warm Detailed Neck Exam: Thyroids Thyroid: Absent bruit Progress Note: A&P Assessment and plan (1) HFrEF (heart failure with reduced ejection fraction): Status: Acute (2) CAD (coronary artery disease): Status: Acute (3) Claudication: Status: Acute (4) PAD (peripheral artery disease): Status: Acute (5) Hyperlipidemia: Status: Acute (6) Hypertension: Status: Acute (7) Type 2 diabetes mellitus without complication, without long-term current use of insulin: Status: Acute Assessment and Plan Assessment and Plan for All Diagnoses:: New HFrEF Mild to moderate MR Echo 12/2024: EF 25 to 30%, grade 2 diastolic dysfunction, akinesis of the anterior and anterolateral LV dunham biatrial dilation mild to moderate MR Severely elevated LVEDP noted on left heart catheterization today Patient needs to be initiated on guideline directed medical therapy for heart failure Start Jardiance and Entresto. No beta-wanda at this time due to severely reduced ejection fraction. Continue Aldactone 25 mg p.o. daily and Lasix 40 mg p.o. daily Patient needs LifeVest prior to discharge home Coronary artery disease Claudication TESFAYE to proximal LAD and first first diagonal with a severely elevated LVEDP noted Continue Plavix, aspirin and statin Peripheral artery disease Bilateral lower extremity claudication Arterial duplex for 2024: Monophasic waveform from the bilateral distal SFA through the tibial arteries consistent with significant abductor canal stenosis bilaterally Dr. Harrell would like patient to return to [facility] for angiogram with bilateral runoff after patient has been started on GDMT for HFrEF Hypertension Continue Entresto 24/26 mg p.o. twice daily Hyperlipidemia LDL goal less than 55, LDL is 56. Continue atorvastatin but increase to 40 mg p.o. daily 01/24/2025: Patient is CV stable for discharge home. Please continue below listed medications and have patient follow-up in cardiology clinic in 1 week for reevaluation. Patient does need to return to [facility] for bilateral runoff to evaluate for peripheral artery disease in the setting of abnormal arterial duplex. Patient needs LifeVest prior to discharge home for ejection fraction of 25 to 30%. Cardiac meds: Aspirin 81 mg p.o. daily Plavix 75 mg p.o. daily Atorvastatin 40 mg p.o. daily Entresto 24/26 mg p.o. twice daily Aldactone 25 mg p.o. daily Lasix 40 mg p.o. daily
--- NOTE | 2025-01-26 11:13 | SW/DCPLANNER ---
Spoke with patient on the phone. Patient stated that he is doing good. Patient stated that he is aware of his upcoming appointments. Patient stated that he was able to get [facility]. Patient stated that he has no concerns or questions at this time. Lauryn Willams
== END 2025-01-25 15:23 | disposition home or self-care (01) ==
LOC: 2ND 11:36
PROVIDERS: Internal Medicine; Internal Medicine Adolescent Medicine; Admitting Provider Student in an Organized Health Care Education/Training Program; PCP Nurse Practitioner Family; Visit Provider Student in an Organized Health Care Education/Training Program
DX: I25.10 Atherosclerotic heart disease of native coronary artery without angina pectoris (principal); I11.0 Hypertensive heart disease with heart failure; I50.20 Unspecified systolic (congestive) heart failure; I77.1 Stricture of artery; R60.0 Localized edema; R94.31 Abnormal electrocardiogram [ECG] [EKG]; E78.2 Mixed hyperlipidemia; E11.9 Type 2 diabetes mellitus without complications; I70.293 Other atherosclerosis of native arteries of extremities, bilateral legs; F17.210 Nicotine dependence, cigarettes, uncomplicated; Z88.8 Allergy status to other drugs, medicaments and biological substances; Z88.0 Allergy status to penicillin; Z79.84 Long term (current) use of oral hypoglycemic drugs; Z79.899 Other long term (current) drug therapy
CPT/HCPCS: 36415; 80048; 80053; 82962; 83036; 83735; 85025; 85347; 92928; 92929; 93458; 99152; 99153; C1725; C1769; C1874; C9600; C9601; G0378; J1200; J1644; J1938; J3010; Q9967

== ENCOUNTER 2025-02-01 09:21 | Outpatient (CLI) | payer MEDICARE, OTHER, SELFPAY ==
[2025-02-01 09:45] LABS: Basophils % 0.4 % (0.1-2.0); Eosinophils # 0.1 Kmm3 (0.0-0.4); Eosinophils % 1.1 % (0.1-12.0); Hematocrit 52.6 % (42.0-52.0); Hemoglobin 16.8 g/dL (14.1-18.0); Immature Granulocytes # 0.02 10^3uL; Immature Granulocytes % 0.2 %; Lymphocytes # 1.7 K/mm3 (0.7-4.5); Lymphocytes % 18.5 % (10-50); Mean Corpuscular HGB Conc 31.9 g/dL (31.8-35.4); Mean Corpuscular Hemoglobin 27.5 pg (27.0-31.2); Mean Corpuscular Volume 86.2 fl (80-94); Mean Platelet Volume 9.3 fl (7.4-10.4); Monocytes # 0.7 K/mm3 (0.1-1.0); Monocytes % 7.5 % (1.7-9.3); Neutrophils # 6.6 K/mm3 (1.8-7.8); Neutrophils % 72.3 % (37.0-80.0); Nucleated Red Blood Cells # 0 10^3/uL; Nucleated Red Blood Cells % 0 %; Platelet Count 225 K/mm3 (142-424); Red Cell Distribution Width 16.3 % (11.5-17.5); Red Cell Distribution Width-SD 48.5 fL; White Blood Count 9.1 K/mm3 (4.8-10.8)
[2025-02-01 10:14] LABS: Anion Gap 9.3 mEq/L (5-15); Blood Urea Nitrogen 17 mg/dl (9-20); Calcium 9.4 mg/dl (8.4-10.2); Carbon Dioxide 27 mmol/L (22.0-30.0); Chloride 108 mmol/L (98-107); Estimated Glomerular Filt Rate 84 ml/min (>60); GFR (African American) 102 ML/MIN (>60); Glucose 134 mg/dl (74-100); Potassium 4.3 mmoL/L (3.5-5.1); Sodium 140 mmol/L (136-145)
== END 2025-02-01 23:59 | disposition home or self-care (01) ==
LOC: LAB 09:22
PROVIDERS: PCP Nurse Practitioner Family; Visit Provider Nurse Practitioner
DX: I25.10 Atherosclerotic heart disease of native coronary artery without angina pectoris (principal); R94.31 Abnormal electrocardiogram [ECG] [EKG]; I10 Essential (primary) hypertension; E78.2 Mixed hyperlipidemia
CPT/HCPCS: 36415; 80048; 85025

== ENCOUNTER 2025-02-07 13:04 | Observation (INO) | payer MEDICARE, OTHER, SELFPAY ==
[2025-02-07] VITALS (60 sets, daily range): BP systolic 113–147; BP diastolic 60–86; PULSE 66–96; RESP 15–18; TEMP 36.4–36.8; O2SAT 93–98; BMI 31.1
--- NOTE | 2025-02-07 06:59 | IR_ITS ---
APPROVED REPORT Patient Location: Outpatient PROCEDURES Catheter placed in the dominant aorta Abdominal aortography Bilateral iliofemoral runoff Intravascular lithotripsy to the left SFA and left popliteal artery Drug-coated balloon angioplasty to the left SFA and left popliteal artery Bare-metal self-expanding stent deployment to the distal left SFA INDICATION Abnormal KRYSTA, Peripheral artery disease, Occlusion of the left SFA/popliteal artery, Dissection involving the left distal SFA Informed consent was obtained prior to the procedure. COMPLICATIONS NONE Estimated Blood Loss: LESS THAN 10 ML TECHNIQUE 1% lidocaine used anesthetize right groin the right femoral artery was accessed via the Salinger technique and a 5 Greenlandic sheath is placed in the right femoral artery. A pigtail catheter was advanced into the abdominal aorta abdominal aortography followed by bilateral iliofemoral runoff was performed. Following this a rim catheter was used to cannulate the left common iliac artery followed by an advantage wire placed into the left SFA under fluoroscopic guidance. The 5 Greenlandic sheath was exchanged for a 45 cm destination sheath. Therapeutic heparin was administered giving a therapeutic ACT. A Choice PT extra-support wire was placed distally in the popliteal artery and a 5 mm x 80 mm intravascular lithotripsy balloon was deployed at 400 pulsations predilating and pretreating the left SFA and popliteal artery. Following this a 5 mm x 150 mm drug-coated balloon was deployed at 8 lilia for 3 minutes reducing the stenosis. Repeat angiography demonstrated a significant dissection at Juancarlos's canal therefore a 6 mm x 40 mm bare-metal self-expanding stent was deployed tacking back the dissection. Excellent angiograph results were obtained. At the end of the procedure the apparatus was removed the groin is reprepped closure change sheath was removed and hemostasis was achieved using Perclose device patient was transferred to the postop putting in stable condition. 4 Greenlandic JR4 catheter was placed into the left common femoral artery and the catheter was pulled back through the iliac artery. No demonstrable stenosis or [place] stenotic gradient was identified from the left femoral artery back into the left common iliac artery. ANGIOGRAPHIC RESULTS Distal abdominal aorta is atheromatous and mildly calcified with no significant stenosis Right common and external iliac arteries have 30 to 40% calcified stenosis the right internal iliac artery is patent the right external iliac artery has 30% calcified stenosis the right profunda femoris artery is widely patent the right superficial femoral artery is patent in the proximal and mid segment with 30% stenosis and then occluded at the proximal portion of Juancarlos's canal and reconstitutes just distal to Juancarlos's canal with the prepatellar level. The popliteal artery is then patent and supplies two-vessel runoff below the knee on the right from the anterior and posterior tibialis artery Left common iliac artery has mild atheromatous plaque nothing greater than 20% while the left internal iliac artery is patent and the left external iliac artery has a concentric 40% stenosis with no [place]ina stenotic gradient. The left common femoral artery is normal the left profunda femoris artery is normal. The left superficial femoral artery has proximal 30 to 40% stenosis and then subtotally occluded at Juancarlos's canal and heavily calcified. There is two-vessel runoff below the knee on the left side IMPRESSION Peripheral artery disease as described above most notably with severe bilateral SFA disease as described above Successful intravascular lithotripsy followed by drug-coated balloon angioplasty followed by self-expanding bare-metal stent deployment to the left SFA popliteal artery junction Persistent occlusion of the right SFA popliteal artery Two-vessel runoff below the knee bilaterally PLAN 1. Dual antiplatelet therapy 2. Avoidance of tobacco products 3. Patient be brought back to the [facility] in 2 to 3 weeks will undergo antegrade access with plans to perform intravascular lithotripsy and drug-coated balloon angioplasty of the right SFA and right popliteal artery 4. LDL less than 55 to be achieved with high intensity statin 5. Rehabilitation 6. Risk factor modification Electronically signed by : Petey Harrell MD 02/07/2025 14:28:11
[2025-02-07 08:34] LABS: Basophils % 0.3 % (0.1-2.0); Eosinophils # 0.2 Kmm3 (0.0-0.4); Eosinophils % 1.9 % (0.1-12.0); Hematocrit 49.5 % (42.0-52.0); Hemoglobin 15.4 g/dL (14.1-18.0); Immature Granulocytes # 0.02 10^3uL; Immature Granulocytes % 0.2 %; Lymphocytes # 1.6 K/mm3 (0.7-4.5); Lymphocytes % 17.9 % (10-50); Mean Corpuscular HGB Conc 31.1 g/dL (31.8-35.4); Mean Corpuscular Hemoglobin 26.9 pg (27.0-31.2); Mean Corpuscular Volume 86.4 fl (80-94); Monocytes # 0.8 K/mm3 (0.1-1.0); Monocytes % 8.3 % (1.7-9.3); Neutrophils # 6.5 K/mm3 (1.8-7.8); Neutrophils % 71.4 % (37.0-80.0); Nucleated Red Blood Cells # 0 10^3/uL; Nucleated Red Blood Cells % 0 %; Platelet Count 217 K/mm3 (142-424); Red Blood Count 5.73 M/mm3 (4.60-6.20); Red Cell Distribution Width 15.6 % (11.5-17.5); Red Cell Distribution Width-SD 48.3 fL; White Blood Count 9.1 K/mm3 (4.8-10.8)
[2025-02-07 08:45] LABS: Anion Gap 7.1 mEq/L (5-15); Blood Urea Nitrogen 17 mg/dl (9-20); Carbon Dioxide 27 mmol/L (22.0-30.0); Chloride 107 mmol/L (98-107); Creatinine Clearance Estimated 91 mL/min (50-200); Estimated Glomerular Filt Rate 75 ml/min (>60); GFR (African American) 90 ML/MIN (>60); Glucose 152 mg/dl (74-100); Potassium 4.1 mmoL/L (3.5-5.1); Sodium 137 mmol/L (136-145)
[2025-02-07] MEDS: HEPARIN 1,000 UNITS/500ML NS (CATH LAB) 3000 UNIT IV (09:53)
[2025-02-07] MEDS: LIDOCAINE 1% 10ML MDV 10 ML IJ (09:53)
[2025-02-07] MEDS: diphenhydrAMINE 50MG/ML VIAL 50 MG IV (09:54)
[2025-02-07] MEDS: 0.9 % SODIUM CHLORIDE 500 ML 25 ML IV (09:54)
[2025-02-07] MEDS: HEPARIN 1,000 UNITS/ML 10ML VIAL (CATH LAB) 5000 UNIT IV (10:42)
[2025-02-07] MEDS: FENTANYL 100MCG/2ML VIAL 50 MCG IV (10:42)
[2025-02-07] MEDS: MIDAZOLAM HCL 1MG/ML 5ML VIAL 1 MG IV (10:43)
--- NOTE | 2025-02-07 11:36 | HMH.PHAINT1 ---
Pharmacy Intervention Comments: MEDICATION RECONCILIATION COMPLETED ON PATIENT USING EXTERNAL FILL HISTORY FROM PHARMACY AND DISCHARGE SUMMARY FROM PREVIOUS ADMISSION. -RONY LISA, TOÑITOD
[2025-02-07] MEDS: PROTAMINE SULFATE 50MG/5ML VIAL (CATH LAB) 50 MG IV (12:00)
--- NOTE | 2025-02-07 12:01 | SUR.PHASEII ---
Pt to be admitted to room 209 per Dori Mccann RN (HS)
--- NOTE | 2025-02-07 13:18 | EXP.HP ---
History of Present Illness *Admission Date: 02/07/25 *Reason for visit:: PAD/claudication *History of present illness: Mr. Hobbs is a 69-year-old male with history of diabetes, hypertension, hyperlipidemia, PAD and tobacco use disorder. He presented originally as a referral to cardiology for PAD a month ago. Ended up getting a heart cath last month due to heart failure on echo. Was brought back today for staged intervention on peripheral artery disease. Underwent lithotripsy and stenting of left SFA to popliteal. Tolerated procedure well. Had 6 Barbadian sheath that needed manual pull from right groin. Medicine was consulted for admission and further monitoring overnight along with repeat labs. Case was discussed with cardiology. Patient on room air at time of arrival to the floor. Denies chest pain. No nausea or vomiting. Alert and oriented x 4 [facility] Disclaimer: The information contained in this section may have been updated after the patient was seen, as this information can be updated by other users. Medical History S/P angiogram of extremity Abnormal ECG Edema Claudication Tendinopathy of right rotator cuff Hypertension Diabetes High cholesterol Surgical History H/O rotator cuff surgery Social History Smoking Status: Current every day smoker tobacco type: cigarettes and cigars alcohol intake: never current occupational status: other Travel in the last 8 weeks?: None Have you lived/traveled outside [place] in past 30 days?: No Contact w/someone who lives/traveled outside [place] past 30 days?: No Exposure to someone with infectious disease in past 14 days?: No Do you have a fever (greater than 100.4 F or 38 C)?: No Have you tested positive for COVID-19?: No Exposed to someone with COVID-19 in past 14 days?: No Do you have a sore throat?: No Do you have a cough?: No Do you have any weakness?: No Do you have any diarrhea?: No Are you experiencing any unusual bleeding?: No Do you have any muscle aches/pain?: No Do you have any abdominal pain?: No Are you experiencing loss of taste or smell?: No Other Medical History Have you received the Flu Vaccine for this season: No Have you received the Pneumonia Vaccine: No Review of Systems Review of Systems Review of systems (narrative): 14 point review of systems performed, pertinent positives and negatives as per HPI Meds Home Medications and Allergies Home Medications ?Medication ?Instructions ?Recorded ?Confirmed ?Type lancets 28 gauge (FreeStyle #100 ea 08/25/23 02/07/25 Rx Lancets) blood-glucose meter (FreeStyle #1 ea 09/23/23 02/07/25 Rx Lite Meter kit) blood sugar diagnostic (FreeStyle #100 ea 03/01/24 02/07/25 Rx Lite Strips) aspirin 81 mg chewable tablet 81 mg PO DAILY 30 days #30 tabs 01/24/25 02/07/25 Rx empagliflozin 25 mg-linagliptin 5 1 tab PO DAILY 01/24/25 02/07/25 History mg tablet (Glyxambi) sertraline 25 mg tablet 25 mg PO DAILY 01/24/25 02/07/25 History atorvastatin 40 mg tablet 40 mg PO HS 30 days #30 tabs 01/25/25 02/07/25 Rx clopidogrel 75 mg tablet 75 mg PO DAILY 30 days #30 tabs 01/25/25 02/07/25 Rx sacubitril 24 mg-valsartan 26 mg 1 tab PO BID 30 days #60 tabs 01/25/25 02/07/25 Rx tablet (Entresto) spironolactone 25 mg tablet 25 mg PO DAILY 30 days #30 tabs 01/25/25 02/07/25 Rx metformin 1,000 mg tablet 1,000 mg PO DAILY 02/07/25 02/07/25 History New Prescriptions to Start Prescriptions: Allergies Allergy/AdvReac Type Severity Reaction Status Date / Time semaglutide (From [facility]) Allergy Severe Blurry Verified 02/07/25 08:19 Vision Penicillins Allergy Mild Unknown Verified 02/07/25 08:19 allergy reaction Exam Data for Last 24 hours Vital signs and Labs for Last 24 Hours: Temp Pulse Resp BP Pulse Ox O2 Del Method 98 F 70 18 127/70 95 Room Air 02/07/25 08:19 02/07/25 13:03 02/07/25 13:03 02/07/25 13:03 02/07/25 13:03 02/07/25 13:03 Laboratory Results - last 24 hr 02/07/25 08:30: WBC 9.1, RBC 5.73, Hgb 15.4, Hct 49.5, MCV 86.4, MCH 26.9 L, MCHC 31.1 L, RDW 15.6, Plt Count 217, MPV 9.0, Neut % (Auto) 71.4, Lymph % (Auto) 17.9, [place] % (Auto) 8.3, Eos % (Auto) 1.9, Baso % (Auto) 0.3, Neut # (Auto) 6.5, Lymph # (Auto) 1.6, [place] # (Auto) 0.8, Eos # (Auto) 0.2, Baso # (Auto) 0.0, Sodium 137, Potassium 4.1, Chloride 107, Carbon Dioxide 27, Anion Gap 7.1, BUN 17, Creatinine 1.00, Estimated Creat Clear 91, Estimated GFR 75, Est GFR ( Amer) 90, Glucose 152 H, Calcium 9.0 I & O for Last 24 hours: Intake & Output 02/04/25 02/05/25 02/06/25 02/07/25 23:59 23:59 23:59 23:59 Weight 90 kg Constitutional Constitutional: no acute distress, average body habitus, chronically ill appearing and cooperative *Routine HEENT Exam Head: Present normocephalic Eye: Present EOMI and PERRL ENT: Present mucous membranes moist *Routine Neck Exam Neck: Present supple; Absent lymphadenopathy *Routine Respiratory Exam Respiratory: Present CTA bilaterally; Absent rhonchi, stridor, wheezes or crackles *Routine Cardiovascular Exam Cardiovascular: Present RRR *Routine Abdominal Exam Abdominal: Present soft and normoactive bowel sounds; Absent tenderness *Routine Rectal Exam Rectal:: deferred *Routine Genitalia Exam Genitalia:: deferred Comment:: Right femoral access clean dry and intact. No bleeding or hematoma *Routine Extremities Exam Extremities: Absent cyanosis, clubbing or edema *Routine Skin Exam Skin: Present warm; Absent rash *Routine Neurological Exam Neurological: Present alert, oriented X3 and moving all extremities; Absent altered mental status Assessment and Plan *Assessment and plan (1) Claudication: Status: Acute Category: Medical Code(s): I73.9 - Peripheral vascular disease, unspecified (2) HFrEF (heart failure with reduced ejection fraction): Status: Acute Category: Medical Code(s): I50.20 - Unspecified systolic (congestive) heart failure (3) CAD (coronary artery disease): Status: Acute Category: Medical Code(s): I25.10 - Atherosclerotic heart disease of [place] coronary artery without angina pectoris (4) PAD (peripheral artery disease): Status: Acute Category: Medical Code(s): I73.9 - Peripheral vascular disease, unspecified (5) Hyperlipidemia: Status: Acute Qualifiers: Hyperlipidemia type: mixed hyperlipidemia Qualified Code(s): E78.2 - Mixed hyperlipidemia Category: Medical Code(s): E78.5 - Hyperlipidemia, unspecified (6) Hypertension: Status: Acute Qualifiers: Hypertension type: primary hypertension Qualified Code(s): I10 - Essential (primary) hypertension Category: Medical Code(s): I10 - Essential (primary) hypertension (7) Type 2 diabetes mellitus without complication, without long-term current use of insulin: Status: Acute Category: Medical Code(s): E11.9 - Type 2 diabetes mellitus without complications Plan 69-year-old male who presented for staged revascularization of peripheral artery disease. Discussed case with cardiology, request admission for monitoring overnight due to manual pull of sheath. Agreed to admit for further care. Recent diagnosis of HFrEF with EF of 25 to 30%. Wearing LifeVest at home. Denies chest pain or shortness of breath. Tolerated procedure well. Received stent to SFA elective heart cath after echo yesterday showed reduced EF of 25 to 30%. Found to have multivessel disease. Received stents to proximal LAD and first diagonal. Discussed case with cardiology, request admission for initiation of treatment for new diagnosis of HFrEF. I agreed to admit for further care. Will initiate goal-directed therapy. Necessitating inpatient management. Problems addressed as follows: PAD/Claudication Acute HFrEF CAD Hypertension - Severe bilateral SFA disease. Successful intravascular lithotripsy followed by drug-coated balloon angioplasty followed by self-expanding bare-metal stent deployment to the left SFA popliteal artery junction. Has persistent occlusion of the right SFA popliteal artery. - To be brought back to the [facility] in 2 to 3 weeks to undergo antegrade access with plans to perform revascularization of right SFA. - aspirin 81 mg daily and Plavix 75 mg daily - Echo obtained last month with EF 25 to 30%. Grade 2 diastolic dysfunction. Significant akinesis of the anterior and anterolateral LV dunham. -Continue spironolactone 25 mg daily, Entresto 24/26 mg twice daily, utilize Glyxambi (empagliflozin) 1 tab daily, Lipitor 40 mg nightly. -holding beta-wanda in the setting of severely reduced EF -Cardiology consulted, appreciate their recommendations. - LifeVest approved last visit. Hyperlipidemia: LDL 56 last month, goal less than 55, continue Lipitor 40 mg nightly. Diabetes: - A1c 6.5 last month, controlled on current oral regimen. Continue sliding scale insulin with fingersticks ACHS - Continue glyxambi and metformin. - White count normal at 9, hemoglobin 15. Kidney function normal with BUN 17, creatinine 1. Glucose 152 on admission. - Repeat CBC, CMP, magnesium ordered for the morning Continue Zoloft 25 mg daily for mood disorder Full code Heparinized in [facility] Diabetic diet
[2025-02-07] MEDS: IOHEXOL-240 100ML BOTTLE 270 ML IV (14:30)
[2025-02-07 14:31] LABS: CATHL Activated Clotting Time 296 SEC (74-125)
[2025-02-07 15:44] LABS: POC Glucose,Bedside 96 (70-110)
[2025-02-07] MEDS: ATORVASTATIN 40MG TABLET 40 MG PO (20:57)
[2025-02-07] MEDS: SACUBITRIL/VALSARTAN 24-26MG TABLET 1 EACH PO (20:57)
[2025-02-07 21:10] LABS: POC Glucose,Bedside 202 (70-110)
[2025-02-08] VITALS: BP 116/57; PULSE 75; PULSE 77; RESP 17; TEMP 36.7; O2SAT 91
[2025-02-08 04:00] VITALS: BP 127/71; PULSE 70; PULSE 71; RESP 16; TEMP 36.5; O2SAT 95; BMI 310729.4
--- NOTE | 2025-02-08 06:09 | PC.NURSE ---
Pt A&OX4 and has tolerated room air. Lung sounds clear and bowel sounds active. VSS. Dressing to right groin is c/d/i. He has ambulated room independently. No complaints at this time call light within reach.
[2025-02-08 06:11] LABS: POC Glucose,Bedside 136 (70-110)
[2025-02-08 06:49] LABS: Basophils % 0.3 % (0.1-2.0); Eosinophils # 0.1 Kmm3 (0.0-0.4); Eosinophils % 1.4 % (0.1-12.0); Hematocrit 45.7 % (42.0-52.0); Hemoglobin 14.7 g/dL (14.1-18.0); Immature Granulocytes # 0.01 10^3uL; Immature Granulocytes % 0.1 %; Lymphocytes # 1.2 K/mm3 (0.7-4.5); Mean Corpuscular HGB Conc 32.2 g/dL (31.8-35.4); Mean Corpuscular Hemoglobin 27.4 pg (27.0-31.2); Mean Corpuscular Volume 85.3 fl (80-94); Mean Platelet Volume 9.5 fl (7.4-10.4); Monocytes # 0.7 K/mm3 (0.1-1.0); Monocytes % 7.8 % (1.7-9.3); Neutrophils # 6.9 K/mm3 (1.8-7.8); Neutrophils % 77.4 % (37.0-80.0); Nucleated Red Blood Cells # 0 10^3/uL; Nucleated Red Blood Cells % 0 %; Platelet Count 198 K/mm3 (142-424); Red Blood Count 5.36 M/mm3 (4.60-6.20); Red Cell Distribution Width 15.2 % (11.5-17.5); Red Cell Distribution Width-SD 47.5 fL; White Blood Count 8.9 K/mm3 (4.8-10.8)
[2025-02-08 07:04] LABS: Anion Gap 8.9 mEq/L (5-15); Blood Urea Nitrogen 16 mg/dl (9-20); Calcium 8.4 mg/dl (8.4-10.2); Carbon Dioxide 25 mmol/L (22.0-30.0); Chloride 106 mmol/L (98-107); Creatinine Clearance Estimated 91 mL/min (50-200); Estimated Glomerular Filt Rate 75 ml/min (>60); GFR (African American) 90 ML/MIN (>60); Glucose 135 mg/dl (74-100); Potassium 3.9 mmoL/L (3.5-5.1); Sodium 136 mmol/L (136-145)
--- NOTE | 2025-02-08 07:35 | EXP.DC.SUM ---
General Admission date:: 02/07/25 Discharge date: 02/08/25 HPI HPI HPI: Mr. Hobbs is a 69-year-old male with history of diabetes, hypertension, hyperlipidemia, PAD and tobacco use disorder. He presented originally as a referral to cardiology for PAD a month ago. Ended up getting a heart cath last month due to heart failure on echo. Was brought back today for staged intervention on peripheral artery disease. Underwent lithotripsy and stenting of left SFA to popliteal. Tolerated procedure well. Had 6 [place] sheath that needed manual pull from right groin. Medicine was consulted for admission and further monitoring overnight along with repeat labs. Case was discussed with cardiology. Patient on room air at time of arrival to the floor. Denies chest pain. No nausea or vomiting. Alert and oriented x 4 Hospital Course Hospital Course Hospital Course: 69-year-old male who presented for staged revascularization of peripheral artery disease. Discussed case with cardiology, request admission for monitoring overnight due to manual pull of sheath. Agreed to admit for further care. Recent diagnosis of HFrEF with EF of 25 to 30%. Wearing LifeVest at home. Denies chest pain or shortness of breath. Tolerated procedure well. Received stent to SFA elective heart cath after echo yesterday showed reduced EF of 25 to 30%. Found to have multivessel disease. Received stents to proximal LAD and first diagonal. Discussed case with cardiology, request admission for initiation of treatment for new diagnosis of HFrEF. I agreed to admit for further care. Monitored overnight with no issues. Remained stable in the morning. Will discharge home with close follow-up. Problems addressed as follows: PAD/Claudication Acute HFrEF CAD Hypertension - Severe bilateral SFA disease. Successful intravascular lithotripsy followed by drug-coated balloon angioplasty followed by self-expanding bare-metal stent deployment to the left SFA popliteal artery junction. Has persistent occlusion of the right SFA popliteal artery. To be brought back to the [facility] in 2 to 3 weeks to undergo antegrade access with plans to perform revascularization of right SFA. Continue aspirin 81 mg daily and Plavix 75 mg daily. Echo obtained last month with EF 25 to 30%. Grade 2 diastolic dysfunction. Significant akinesis of the anterior and anterolateral LV dun[place]. Continue spironolactone 25 mg daily, Entresto 24/26 mg twice daily, utilize Glyxambi (empagliflozin) 1 tab daily, Lipitor 40 mg nightly. holding beta-wanda in the setting of severely reduced EF. Continue LifeVest at discharge. Improved at previous visit. Hyperlipidemia: LDL 56 last month, goal less than 55, continue Lipitor 40 mg nightly. Diabetes: - A1c 6.5 last month, controlled on current oral regimen. Continue glyxambi and metformin. - White count normal at 9, hemoglobin 15. Kidney function normal with BUN 17, creatinine 1. Glucose 152 on admission. Continue Zoloft 25 mg daily for mood disorder Exam Data for Last 24 hours Vital signs and Labs for Last 24 Hours: Temp Pulse Resp BP Pulse Ox O2 Del Method 97.7 F 71 16 127/71 95 Room Air 02/08/25 04:00 02/08/25 04:00 02/08/25 04:00 02/08/25 04:00 02/08/25 04:00 02/08/25 06:38 Laboratory Results - last 24 hr 02/07/25 08:30: WBC 9.1, RBC 5.73, Hgb 15.4, Hct 49.5, MCV 86.4, MCH 26.9 L, MCHC 31.1 L, RDW 15.6, Plt Count 217, MPV 9.0, Neut % (Auto) 71.4, Lymph % (Auto) 17.9, [place] % (Auto) 8.3, Eos % (Auto) 1.9, Baso % (Auto) 0.3, Neut # (Auto) 6.5, Lymph # (Auto) 1.6, [place] # (Auto) 0.8, Eos # (Auto) 0.2, Baso # (Auto) 0.0, Sodium 137, Potassium 4.1, Chloride 107, Carbon Dioxide 27, Anion Gap 7.1, BUN 17, Creatinine 1.00, Estimated Creat Clear 91, Estimated GFR 75, Est GFR ( Amer) 90, Glucose 152 H, Calcium 9.0 02/07/25 10:38: Activated Clotting Time 296 H* 02/07/25 15:37: POC Glucose 96 02/07/25 20:56: POC Glucose 202 H 02/08/25 05:50: WBC 8.9, RBC 5.36, Hgb 14.7, Hct 45.7, MCV 85.3, MCH 27.4, MCHC 32.2, RDW 15.2, Plt Count 198, MPV 9.5, Neut % (Auto) 77.4, Lymph % (Auto) 13.0, [place] % (Auto) 7.8, Eos % (Auto) 1.4, Baso % (Auto) 0.3, Neut # (Auto) 6.9, Lymph # (Auto) 1.2, [place] # (Auto) 0.7, Eos # (Auto) 0.1, Baso # (Auto) 0.0, Sodium 136, Potassium 3.9, Chloride 106, Carbon Dioxide 25, Anion Gap 8.9, BUN 16, Creatinine 1.00, Estimated Creat Clear 91, Estimated GFR 75, Est GFR ( Amer) 90, Glucose 135 H, Calcium 8.4 02/08/25 06:02: POC Glucose 136 H I & O for Last 24 hours: Intake & Output 02/05/25 02/06/25 02/07/25 02/08/25 23:59 23:59 23:59 23:59 Intake Total 240 / 490 250 / 250 Output Total 1850 / 1850 Balance -1610 / -1360 250 / 250 Weight 90 kg 90 kg Constitutional Constitutional: no acute distress, obese, chronically ill appearing and cooperative *Routine HEENT Exam Head: Present normocephalic Eye: Present EOMI and PERRL ENT: Present mucous membranes moist *Routine Neck Exam Neck: Present supple; Absent lymphadenopathy *Routine Respiratory Exam Respiratory: Present CTA bilaterally *Routine Cardiovascular Exam Cardiovascular: Present RRR *Routine Abdominal Exam Abdominal: Present soft and normoactive bowel sounds; Absent tenderness *Routine Rectal Exam Patient deferred: visual exam *Routine Exam Patient deferred: penile exam Comments: Right femoral access point clean dry and intact, no hematoma *Routine Extremities Exam Extremities: Absent cyanosis, clubbing or edema *Routine Skin Exam Skin: Present warm; Absent rash *Routine Neurological Exam Neurological: Present alert, oriented X3 and moving all extremities; Absent altered mental status Results Data Completed and Pending Labs on day of discharge: Labs from last 24 hours 02/08/25 02/08/25 02/07/25 06:02 05:50 20:56 WBC 8.9 RBC 5.36 Hgb 14.7 Hct 45.7 MCV 85.3 MCH 27.4 MCHC 32.2 RDW 15.2 Plt Count 198 MPV 9.5 Neut % (Auto) 77.4 Lymph % (Auto) 13.0 [place] % (Auto) 7.8 Eos % (Auto) 1.4 Baso % (Auto) 0.3 Neut # (Auto) 6.9 Lymph # (Auto) 1.2 [place] # (Auto) 0.7 Eos # (Auto) 0.1 Baso # (Auto) 0.0 Activated Clotting Time Sodium 136 Potassium 3.9 Chloride 106 Carbon Dioxide 25 Anion Gap 8.9 BUN 16 Creatinine 1.00 Estimated Creat Clear 91 Estimated GFR 75 Est GFR ( Amer) 90 Glucose 135 H POC Glucose 136 H 202 H Calcium 8.4 02/07/25 02/07/25 02/07/25 15:37 10:38 08:30 WBC 9.1 RBC 5.73 Hgb 15.4 Hct 49.5 MCV 86.4 MCH 26.9 L MCHC 31.1 L RDW 15.6 Plt Count 217 MPV 9.0 Neut % (Auto) 71.4 Lymph % (Auto) 17.9 [place] % (Auto) 8.3 Eos % (Auto) 1.9 Baso % (Auto) 0.3 Neut # (Auto) 6.5 Lymph # (Auto) 1.6 [place] # (Auto) 0.8 Eos # (Auto) 0.2 Baso # (Auto) 0.0 Activated Clotting Time 296 H* Sodium 137 Potassium 4.1 Chloride 107 Carbon Dioxide 27 Anion Gap 7.1 BUN 17 Creatinine 1.00 Estimated Creat Clear 91 Estimated GFR 75 Est GFR ( Amer) 90 Glucose 152 H POC Glucose 96 Calcium 9.0 DS: Diagnosis Discharge Diagnosis (1) Claudication: Status: Acute Code(s): I73.9 - Peripheral vascular disease, unspecified (2) HFrEF (heart failure with reduced ejection fraction): Status: Acute Code(s): I50.20 - Unspecified systolic (congestive) heart failure (3) CAD (coronary artery disease): Status: Acute Code(s): I25.10 - Atherosclerotic heart disease of [place] coronary artery without angina pectoris (4) PAD (peripheral artery disease): Status: Acute Code(s): I73.9 - Peripheral vascular disease, unspecified (5) Hyperlipidemia: Status: Acute Code(s): E78.5 - Hyperlipidemia, unspecified Qualifiers: Hyperlipidemia type: mixed hyperlipidemia Qualified Code(s): E78.2 - Mixed hyperlipidemia (6) Hypertension: Status: Acute Code(s): I10 - Essential (primary) hypertension Qualifiers: Hypertension type: primary hypertension Qualified Code(s): I10 - Essential (primary) hypertension (7) Type 2 diabetes mellitus without complication, without long-term current use of insulin: Status: Acute Code(s): E11.9 - Type 2 diabetes mellitus without complications Meds Home Medications and Allergies Home Medications ?Medication ?Instructions ?Recorded ?Confirmed ?Type lancets 28 gauge (FreeStyle #100 ea 08/25/23 02/07/25 Rx Lancets) blood-glucose meter (FreeStyle #1 ea 09/23/23 02/07/25 Rx Lite Meter kit) blood sugar diagnostic (FreeStyle #100 ea 03/01/24 02/07/25 Rx Lite Strips) aspirin 81 mg chewable tablet 81 mg PO DAILY 30 days #30 tabs 01/24/25 02/07/25 Rx empagliflozin 25 mg-linagliptin 5 1 tab PO DAILY 01/24/25 02/07/25 History mg tablet (Glyxambi) sertraline 25 mg tablet 25 mg PO DAILY 01/24/25 02/07/25 History atorvastatin 40 mg tablet 40 mg PO HS 30 days #30 tabs 01/25/25 02/07/25 Rx clopidogrel 75 mg tablet 75 mg PO DAILY 30 days #30 tabs 01/25/25 02/07/25 Rx sacubitril 24 mg-valsartan 26 mg 1 tab PO BID 30 days #60 tabs 01/25/25 02/07/25 Rx tablet (Entresto) spironolactone 25 mg tablet 25 mg PO DAILY 30 days #30 tabs 01/25/25 02/07/25 Rx metformin 1,000 mg tablet 1,000 mg PO DAILY 02/07/25 02/07/25 History New Prescriptions to Start Prescriptions: Allergies Allergy/AdvReac Type Severity Reaction Status Date / Time semaglutide (From [facility]) Allergy Severe Blurry Verified 02/07/25 08:19 Vision Penicillins Allergy Mild Unknown Verified 02/07/25 08:19 allergy reaction Discharge Plan Disposition Patient Disposition: Home, Self-Care Condition: Fair Follow up Plan Follow up with: Petey Drew DO [Staff Physician] - 02/17/25 8:30 am Petey Harrell MD [Staff Physician] - 02/14/25 9:30 am Prescriptions/Medication Reconciliation: Continued (DME) lancets [FreeStyle Lancets] 28 gauge misc See Rx Instructions .Route Qty: 100 0RF Rx Instructions: As directed daily (DME) blood-glucose meter [FreeStyle Lite Meter] Kit See Rx Instructions .Route Qty: 1 0RF Rx Instructions: As directed (DME) FreeStyle Lite Strips Strip See Rx Instructions .Route Qty: 100 3RF Rx Instructions: As directed aspirin 81 mg Tablet,Chewable 81 mg PO DAILY 30 Days Qty: 30 6RF sertraline 25 mg tablet 25 mg PO DAILY Glyxambi 25-5 mg tablet 1 tab PO DAILY atorvastatin 40 mg Tablet 40 mg PO HS 30 Days Qty: 30 0RF clopidogrel 75 mg Tablet 75 mg PO DAILY 30 Days Qty: 30 0RF spironolactone 25 mg Tablet 25 mg PO DAILY 30 Days Qty: 30 0RF Entresto 24-26 mg Tablet 1 tab PO BID 30 Days Qty: 60 0RF metformin 1,000 mg tablet 1,000 mg PO DAILY Problem Reconciliation Problems Reviewed?: Yes Patient Discharge Instructions ACTIVITY: Continue current activity DIET: continue same diet Patient Instructions: DI for Peripheral Vascular (Arterial) Disease, DI for Surgical Site Infection, DI for Moderate Sedation, Stop Light Heart Failure Print Language: Lithuanian Providers Primary Care Provider: Lena Callahan Admit Provider: Ozzy Diaz Attending Provider: Ozzy Diaz
[2025-02-08 08:00] VITALS: PULSE 80
--- NOTE | 2025-02-08 09:15 | PC.NURSE ---
Refused assessment. States he is going home.
--- NOTE | 2025-02-09 11:35 | SW/DCPLANNER ---
Spoke with patient on the phone. Patient stated that he is doing good. Patient stated that he is aware of his upcoming appointment. Patient stated that he was able to get his medicine picked up. Patient denies any concerns or questions at this time. Lauryn Willams.
== END 2025-02-08 09:15 | disposition home or self-care (01) ==
LOC: 2ND 13:05
PROVIDERS: Internal Medicine; Admitting Provider Internal Medicine Adolescent Medicine; PCP Nurse Practitioner Family; Visit Provider Internal Medicine Adolescent Medicine
DX: I25.10 Atherosclerotic heart disease of native coronary artery without angina pectoris (principal); I70.203 Unspecified atherosclerosis of native arteries of extremities, bilateral legs; I77.1 Stricture of artery; R60.0 Localized edema; I50.20 Unspecified systolic (congestive) heart failure; I11.0 Hypertensive heart disease with heart failure; E11.9 Type 2 diabetes mellitus without complications; E87.5 Hyperkalemia; E78.5 Hyperlipidemia, unspecified; R94.31 Abnormal electrocardiogram [ECG] [EKG]; Z79.01 Long term (current) use of anticoagulants; Z79.899 Other long term (current) drug therapy; Z79.82 Long term (current) use of aspirin; Z79.84 Long term (current) use of oral hypoglycemic drugs
CPT/HCPCS: 36415; 80048; 82962; 85025; 85347; 99152; 99153; C1725; C1766; C1769; C1876; C1894; C9765; G0378; J1200; J1644; J2720; J3010; Q9966

== ENCOUNTER 2025-02-14 16:20 | Outpatient (CLI) | payer MEDICARE, OTHER, SELFPAY ==
[2025-02-14 14:28] LABS: Basophils % 0.4 % (0.1-2.0); Eosinophils # 0.2 Kmm3 (0.0-0.4); Eosinophils % 2.2 % (0.1-12.0); Hematocrit 51.2 % (42.0-52.0); Hemoglobin 15.8 g/dL (14.1-18.0); Immature Granulocytes # 0.02 10^3uL; Immature Granulocytes % 0.2 %; Lymphocytes # 1.6 K/mm3 (0.7-4.5); Lymphocytes % 17.6 % (10-50); Mean Corpuscular HGB Conc 30.9 g/dL (31.8-35.4); Mean Corpuscular Hemoglobin 26.9 pg (27.0-31.2); Mean Corpuscular Volume 87.1 fl (80-94); Mean Platelet Volume 9.6 fl (7.4-10.4); Monocytes # 0.6 K/mm3 (0.1-1.0); Monocytes % 6.8 % (1.7-9.3); Neutrophils # 6.7 K/mm3 (1.8-7.8); Neutrophils % 72.8 % (37.0-80.0); Nucleated Red Blood Cells # 0 10^3/uL; Nucleated Red Blood Cells % 0 %; Platelet Count 293 K/mm3 (142-424); Red Blood Count 5.88 M/mm3 (4.60-6.20); Red Cell Distribution Width 15.2 % (11.5-17.5); Red Cell Distribution Width-SD 48.2 fL; White Blood Count 9.2 K/mm3 (4.8-10.8)
[2025-02-14 14:57] LABS: Anion Gap 14.6 mEq/L (5-15); Blood Urea Nitrogen 19 mg/dl (9-20); Calcium 9.3 mg/dl (8.4-10.2); Carbon Dioxide 26 mmol/L (22.0-30.0); Chloride 102 mmol/L (98-107); Estimated Glomerular Filt Rate 84 ml/min (>60); GFR (African American) 102 ML/MIN (>60); Glucose 136 mg/dl (74-100); Potassium 4.6 mmoL/L (3.5-5.1); Sodium 138 mmol/L (136-145)
== END 2025-02-14 23:59 | disposition home or self-care (01) ==
LOC: LAB.DROPOF 16:21
PROVIDERS: PCP Nurse Practitioner Family; Visit Provider Nurse Practitioner Family
DX: I11.0 Hypertensive heart disease with heart failure (principal); R53.83 Other fatigue; I50.20 Unspecified systolic (congestive) heart failure; I25.10 Atherosclerotic heart disease of native coronary artery without angina pectoris; F17.200 Nicotine dependence, unspecified, uncomplicated
CPT/HCPCS: 80048; 85025

== ENCOUNTER 2025-02-28 15:55 | Observation (INO) | payer MEDICARE, OTHER, SELFPAY ==
[2025-02-28] VITALS (62 sets, daily range): BP systolic 114–156; BP diastolic 52–83; PULSE 67–96; RESP 15–22; TEMP 36.6; O2SAT 90–98; BMI 30.5; BMI 28.2
--- NOTE | 2025-02-28 07:01 | IR_ITS ---
APPROVED REPORT Patient Location: Outpatient PROCEDURES Catheter placement in the right popliteal artery Right popliteal artery antegrade angiogram Intravascular lithotripsy to the right SFA/popliteal artery Drug-coated balloon angioplasty to the right SFA and right popliteal artery INDICATION Chronically occluded right SFA, [place] claudication class III Informed consent was obtained prior to the procedure. COMPLICATIONS NONE Estimated Blood Loss: LESS THAN 10 ML TECHNIQUE Patient was placed on the table with plans to proceed with antegrade access. 1% lidocaine used anesthetize the right groin and the right femoral artery was accessed via the cylinder technique in an antegrade manner. 6 Hebrew sheath is placed in the right common femoral artery extending into the right SFA. Therapeutic Was administered giving a therapeutic ACT. An 014 wire was advanced to the occlusion at the [place] canal and an intravascular lithotripsy catheter was advanced to the occluded vessel. Pressure was applied and the catheter was then able to push through the calcification and chronic occlusion. It appeared to be in the lumen into the distal popliteal artery. The catheter was removed and angiography was performed. Following this a trailblazer catheter was placed over the 014 wire and the 014 wire removed. An 035 wire was exchanged and a 5 mm x 150 mm drug-coated balloon was deployed in the distal SFA extending into the popliteal artery at 10 lilia for 3 minutes. Excellent angiograph results were obtained at the end the procedure the apparatus was removed the patient was transferred to the postop putting in stable condition for sheath removal IMPRESSION Successful intravascular lithotripsy of a chronically occluded distal right SFA extending into the popliteal artery followed by successful drug-coated balloon angioplasty reducing 100% occlusion to 0% PLAN 1. Patient had 6 Hebrew antegrade arterial access and is at high risk for bleeding therefore he will be admitted and observed overnight with close nursing supervision 2. Continue with risk factor modification 3. Rehabilitation 4. Avoidance of tobacco products Electronically signed by : Petey Harrell MD 02/28/2025 13:13:47
[2025-02-28 09:05] LABS: Chloride 104 mmol/L (98-107); Potassium 4.1 mmoL/L (3.5-5.1); Sodium 137 mmol/L (136-145)
[2025-02-28 09:08] LABS: Anion Gap 12.1 mEq/L (5-15); Basophils # 0.1 K/mm3 (0-0.2); Basophils % 0.5 % (0.1-2.0); Blood Urea Nitrogen 20 mg/dl (9-20); Calcium 8.8 mg/dl (8.4-10.2); Carbon Dioxide 25 mmol/L (22.0-30.0); Creatinine Clearance Estimated 75 mL/min (50-200); Eosinophils # 0.2 Kmm3 (0.0-0.4); Eosinophils % 1.7 % (0.1-12.0); Estimated Glomerular Filt Rate 60 ml/min (>60); GFR (African American) 73 ML/MIN (>60); Glucose 184 mg/dl (74-100); Hematocrit 46.5 % (42.0-52.0); Hemoglobin 14.6 g/dL (14.1-18.0); Immature Granulocytes # 0.02 10^3uL; Immature Granulocytes % 0.2 %; Lymphocytes # 1.6 K/mm3 (0.7-4.5); Lymphocytes % 17.2 % (10-50); Mean Corpuscular HGB Conc 31.4 g/dL (31.8-35.4); Mean Corpuscular Hemoglobin 26.9 pg (27.0-31.2); Mean Corpuscular Volume 85.6 fl (80-94); Mean Platelet Volume 9.5 fl (7.4-10.4); Monocytes # 0.7 K/mm3 (0.1-1.0); Monocytes % 7.4 % (1.7-9.3); Neutrophils # 6.7 K/mm3 (1.8-7.8); Nucleated Red Blood Cells # 0 10^3/uL; Nucleated Red Blood Cells % 0 %; Platelet Count 216 K/mm3 (142-424); Red Blood Count 5.43 M/mm3 (4.60-6.20); Red Cell Distribution Width 15.1 % (11.5-17.5); Red Cell Distribution Width-SD 47.2 fL; White Blood Count 9.2 K/mm3 (4.8-10.8)
[2025-02-28] MEDS: LIDOCAINE 1% 10ML MDV 10 ML IJ (11:53)
[2025-02-28] MEDS: HEPARIN 1,000 UNITS/500ML NS (CATH LAB) 3000 UNIT IV (11:53)
[2025-02-28] MEDS: diphenhydrAMINE 50MG/ML VIAL 50 MG IV (11:54)
[2025-02-28] MEDS: 0.9 % SODIUM CHLORIDE 500 ML 25 ML IV (11:54)
[2025-02-28] MEDS: MIDAZOLAM HCL 1MG/ML 5ML VIAL 1 MG IV (13:07)
[2025-02-28] MEDS: PROPOFOL 10MG/ML 20ML VIAL 10 MG IV (13:08)
[2025-02-28] MEDS: FENTANYL 100MCG/2ML VIAL 50 MCG IV (13:08)
[2025-02-28] MEDS: HEPARIN 1,000 UNITS/ML 10ML VIAL (CATH LAB) 5000 UNIT IV (13:09)
[2025-02-28] MEDS: IOPAMIDOL-370 (76%);100ML BOTTLE 80 ML IV (15:27)
[2025-02-28 15:36] LABS: CATHL Activated Clotting Time 359 SEC (74-125)
--- NOTE | 2025-02-28 21:18 | EXP.HP ---
History of Present Illness *Admission Date: 02/28/25 *Reason for visit:: S/p peripheral revascularization *History of present illness: Lindy Current is a 69-year-old male with a medical history significant for PAD and intermittent right lower extremity claudication underwent a successful outpatient right SFA, popliteal artery angioplasty with Dr. Harrell. Discussed case with Dr. Harrell, and given that an anterior great approach with a 6 [place] catheter was used he requested admission for monitoring overnight to which I agree. CBC, CMP unremarkable. PFSH PFS Disclaimer: The information contained in this section may have been updated after the patient was seen, as this information can be updated by other users. Medical History History of left heart catheterization S/P angiogram of extremity Screening for prostate cancer Abnormal ECG Edema Claudication Tendinopathy of right rotator cuff Hypertension Diabetes High cholesterol Surgical History History of angioplasty H/O rotator cuff surgery Social History (Updated 02/28/25 @ 16:34 by Gabi Haley RN) Smoking Status: Current every day smoker tobacco type: cigars alcohol intake: never substance use type: denies use current occupational status: retired Travel in the last 8 weeks?: None Have you lived/traveled outside US in past 30 days?: No Contact w/someone who lives/traveled outside US past 30 days?: No Exposure to someone with infectious disease in past 14 days?: No Do you have a fever (greater than 100.4 F or 38 C)?: No Have you tested positive for COVID-19?: No Exposed to someone with COVID-19 in past 14 days?: No Do you have a sore throat?: No Do you have a cough?: No Do you have any weakness?: No Do you have any diarrhea?: No Are you experiencing any unusual bleeding?: No Do you have any muscle aches/pain?: No Do you have any abdominal pain?: No Are you experiencing loss of taste or smell?: No Other Medical History Have you received the Flu Vaccine for this season: No Have you received the Pneumonia Vaccine: No Meds Home Medications and Allergies Home Medications ?Medication ?Instructions ?Recorded ?Confirmed ?Type lancets 28 gauge (FreeStyle #100 ea 08/25/23 02/15/25 Rx Lancets) blood-glucose meter (FreeStyle #1 ea 09/23/23 02/15/25 Rx Lite Meter kit) blood sugar diagnostic (FreeStyle #100 ea 03/01/24 02/15/25 Rx Lite Strips) aspirin 81 mg chewable tablet 81 mg PO DAILY 30 days #30 tabs 01/24/25 02/28/25 Rx empagliflozin 25 mg-linagliptin 5 1 tab PO DAILY 01/24/25 02/28/25 History mg tablet (Glyxambi) sertraline 25 mg tablet 25 mg PO DAILY 01/24/25 02/28/25 History metformin 1,000 mg tablet 1,000 mg PO DAILY 02/07/25 02/28/25 History metoprolol succinate 25 mg 25 mg PO DAILY #90 tabs 02/17/25 02/28/25 Rx tablet,extended release 24 hr (Toprol XL) atorvastatin 40 mg tablet 40 mg PO HS #90 tabs 02/21/25 02/28/25 Rx clopidogrel 75 mg tablet 75 mg PO DAILY #90 tabs 02/21/25 02/28/25 Rx sacubitril 24 mg-valsartan 26 mg 1 tab PO BID #180 tabs 02/21/25 02/28/25 Rx tablet (Entresto) spironolactone 25 mg tablet 25 mg PO DAILY #90 tabs 02/21/25 02/28/25 Rx New Prescriptions to Start Prescriptions: Allergies Allergy/AdvReac Type Severity Reaction Status Date / Time semaglutide (From [facility]) Allergy Severe Blurry Verified 02/28/25 08:31 Vision Penicillins Allergy Mild Unknown Verified 02/28/25 08:31 allergy reaction Exam Data for Last 24 hours Vital signs and Labs for Last 24 Hours: Temp Pulse Resp BP Pulse Ox O2 Del Method 97.9 F 83 16 122/68 92 L Room Air 02/28/25 20:00 02/28/25 20:35 02/28/25 20:35 02/28/25 20:35 02/28/25 20:35 02/28/25 21:00 Laboratory Results - last 24 hr 02/28/25 08:52: WBC 9.2, RBC 5.43, Hgb 14.6, Hct 46.5, MCV 85.6, MCH 26.9 L, MCHC 31.4 L, RDW 15.1, Plt Count 216, MPV 9.5, Neut % (Auto) 73.0, Lymph % (Auto) 17.2, [place] % (Auto) 7.4, Eos % (Auto) 1.7, Baso % (Auto) 0.5, Neut # (Auto) 6.7, Lymph # (Auto) 1.6, [place] # (Auto) 0.7, Eos # (Auto) 0.2, Baso # (Auto) 0.1, Sodium 137, Potassium 4.1, Chloride 104, Carbon Dioxide 25, Anion Gap 12.1, BUN 20, Creatinine 1.20, Estimated Creat Clear 75, Estimated GFR 60, Est GFR ( Amer) 73, Glucose 184 H, Calcium 8.8 02/28/25 12:46: Activated Clotting Time 359 H* I & O for Last 24 hours: Intake & Output 02/25/25 02/26/25 02/27/25 02/28/25 23:59 23:59 23:59 23:59 Intake Total 210 / 210 Output Total 550 / 550 Balance -340 / -340 Weight 84.2 kg Constitutional Constitutional: no acute distress *Routine HEENT Exam Head: Present normocephalic Eye: Present EOMI and PERRL ENT: Present mucous membranes moist *Routine Neck Exam Neck: Present supple; Absent lymphadenopathy *Routine Respiratory Exam Respiratory: Present CTA bilaterally *Routine Cardiovascular Exam Cardiovascular: Present RRR *Routine Abdominal Exam Abdominal: Present soft and normoactive bowel sounds; Absent tenderness *Routine Rectal Exam Rectal:: deferred *Routine Genitalia Exam Genitalia:: deferred *Routine Extremities Exam Extremities: Absent cyanosis, clubbing or edema *Routine Skin Exam Skin: Present warm; Absent rash *Routine Neurological Exam Neurological: Present alert and oriented X3 Assessment and Plan *Assessment and plan (1) PAD (peripheral artery disease): Status: Acute Category: Medical Code(s): I73.9 - Peripheral vascular disease, unspecified Plan Lindy Current is a 69-year-old male with a medical history significant for PAD and intermittent right lower extremity claudication underwent a successful outpatient right SFA, popliteal artery angioplasty with Dr. Harrell. Discussed case with Dr. Harrell, and given that an anterior great approach with a 6 [place] catheter was used he requested admission for monitoring overnight to which I agree. CBC, CMP unremarkable. #PAD #Right lower extremity claudication #Hypertension ? S/p successful outpatient right SFA, popliteal artery angioplasty with Dr. Harrell. Discussed case with Dr. Harrell, and given that an anterior great approach with a 6 [place] catheter was used he requested admission for monitoring overnight to which I agree. ? On my evaluation of patient, laying comfortably in bed without acute distress. Right femoral site clean, dry, intact without signs of bleeding or hematoma. Vital signs stable. ? Creatinine 1.2, GFR 60. Stable. Electrolytes stable. ? Aspirin 81 mg, Plavix 75 mg, atorvastatin 40 mg. Cardiology requested holding metformin. ? Hold home Entresto, spironolactone to allow renal perfusion after contrast. ? Continuous cardiac telemetry. If stable into tomorrow, anticipate discharge with close follow-up with cardiology. #Type 2 diabetes ? LDSSI, ACHS glucose checks. #Anxiety/depression ? Continue home sertraline 25 mg. Full code DVT prophylaxis: Lovenox 40 mg
[2025-03-01] VITALS: BP 109/69; PULSE 96; PULSE 97; RESP 18; TEMP 37.1; O2SAT 92
[2025-03-01 00:34] LABS: POC Glucose,Bedside 190 (70-110)
[2025-03-01 00:34] LABS: POC Glucose,Bedside 140 (70-110)
[2025-03-01 00:34] LABS: POC Glucose,Bedside 132 (70-110)
[2025-03-01 04:00] VITALS: BP 109/61; PULSE 80; PULSE 84; RESP 18; RESP 20; TEMP 37; O2SAT 92; O2SAT 93; BMI 28.1
[2025-03-01 05:16] LABS: Albumin Level 3.9 g/dl (3.5-5.0); Chloride 109 mmol/L (98-107); Sodium 138 mmol/L (136-145)
[2025-03-01 05:17] LABS: Potassium 4.6 mmoL/L (3.5-5.1)
[2025-03-01 05:19] LABS: Alanine Aminotransferase 21 U/L (12-78); Albumin/Globulin Ratio 1.3 (1.1-1.8); Alkaline Phosphatase 94 U/L (38-126); Anion Gap 10.6 mEq/L (5-15); Aspartate Amino Transferase 24 U/L (17-59); Bilirubin,Total 0.8 mg/dl (0.2-1.3); Blood Urea Nitrogen 17 mg/dl (9-20); Calcium 8.6 mg/dl (8.4-10.2); Carbon Dioxide 23 mmol/L (22.0-30.0); Creatinine Clearance Estimated 85 mL/min (50-200); Estimated Glomerular Filt Rate 75 ml/min (>60); GFR (African American) 90 ML/MIN (>60); Globulin 3.1 g/dL (1.3-3.2); Glucose 173 mg/dl (74-100)
[2025-03-01 05:20] LABS: Magnesium 2.3 mg/dl (1.6-2.3)
[2025-03-01 05:33] LABS: Basophils # 0.1 K/mm3 (0-0.2); Basophils % 0.6 % (0.1-2.0); Eosinophils # 0.2 Kmm3 (0.0-0.4); Eosinophils % 1.6 % (0.1-12.0); Hematocrit 44.6 % (42.0-52.0); Hemoglobin 14.5 g/dL (14.1-18.0); Immature Granulocytes # 0.05 10^3uL; Immature Granulocytes % 0.5 %; Lymphocytes # 1.4 K/mm3 (0.7-4.5); Mean Corpuscular HGB Conc 32.5 g/dL (31.8-35.4); Mean Corpuscular Hemoglobin 27.7 pg (27.0-31.2); Mean Corpuscular Volume 85.3 fl (80-94); Mean Platelet Volume 9.6 fl (7.4-10.4); Monocytes # 0.7 K/mm3 (0.1-1.0); Monocytes % 7.3 % (1.7-9.3); Neutrophils # 7.4 K/mm3 (1.8-7.8); Nucleated Red Blood Cells # 0 10^3/uL; Nucleated Red Blood Cells % 0 %; Platelet Count 203 K/mm3 (142-424); Red Blood Count 5.23 M/mm3 (4.60-6.20); Red Cell Distribution Width-SD 46.7 fL; White Blood Count 9.8 K/mm3 (4.8-10.8)
[2025-03-01 07:15] LABS: POC Glucose,Bedside 151 (70-110)
--- NOTE | 2025-03-01 07:48 | PC.NURSE ---
Called , Drea and updated medication list.
[2025-03-01 08:00] VITALS: BP 116/63; PULSE 77; PULSE 78; RESP 17; TEMP 36.6; O2SAT 91
[2025-03-01] MEDS: SERTRALINE 50MG TABLET 25 MG PO (08:26)
[2025-03-01] MEDS: CLOPIDOGREL 75MG TAB 75 MG PO (08:26)
[2025-03-01] MEDS: ENOXAPARIN 40MG/0.4ML SYRINGE 40 MG SUBCUT (08:26)
[2025-03-01] MEDS: ASPIRIN 81MG CHEWABLE TABLET 81 MG PO (08:26)
[2025-03-01] MEDS: METOPROLOL SUCCINATE XL 25MG TABLET 25 MG PO (08:26)
[2025-03-01 08:41] VITALS: O2SAT 93
--- NOTE | 2025-03-01 09:39 | P.DS_ITS ---
General Admission date:: 02/28/25 HPI HPI HPI: Lindy Current is a 69-year-old male with a medical history significant for PAD and intermittent right lower extremity claudication underwent a successful outpatient right SFA, popliteal artery angioplasty with Dr. Harrell. Discussed case with Dr. Harrell, and given that an anterior great approach with a 6 Albanian catheter was used he requested admission for monitoring overnight to [facility] I agree. CBC, CMP unremarkable. Hospital Course Hospital Course Hospital Course: Lindy Current is a 69-year-old male with a medical history significant for PAD and intermittent right lower extremity claudication underwent a successful outpatient right SFA, popliteal artery angioplasty with Dr. Harrell. Discussed case with Dr. Harrell, and given that an anterior great approach with a 6 Albanian catheter was used he requested admission for monitoring overnight to which I agree. CBC, CMP unremarkable. #PAD #Right lower extremity claudication #Hypertension ? S/p successful outpatient right SFA, popliteal artery angioplasty with Dr. Harrell. Discussed case with Dr. Harrell, and given that an anterior great approach with a 6 Albanian catheter was used he requested admission for monitoring overnight to which I agree. ? On my evaluation of patient, laying comfortably in bed without acute distress. Right femoral site clean, dry, intact without signs of bleeding or hematoma. Vital signs stable. ? Creatinine 1.0, GFR 75. Stable. Electrolytes stable. ? Patient remained stable, no signs of bleeding or hematoma. Metformin held during hospitalization. ? Continue aspirin 81 mg, Plavix 75 mg, atorvastatin 40 mg, Entresto, spironolactone. ? Advised to follow-up with cardiology within 2 weeks. #Type 2 diabetes ? Continue home regimen. #Anxiety/depression ? Continue home sertraline 25 mg. Total time spent on discharge: 32 minutes on chart review, counseling, documentation, and direct care with patient. Exam Data for Last 24 hours Vital signs and Labs for Last 24 Hours: Temp Pulse Resp BP Pulse Ox O2 Del Method O2 Flow Rate 97.9 F 78 17 116/63 93 L Room Air 1 03/01/25 08:00 03/01/25 08:00 03/01/25 08:00 03/01/25 08:00 03/01/25 08:41 03/01/25 09:00 03/01/25 00:00 Laboratory Results - last 24 hr 02/28/25 12:46: Activated Clotting Time 359 H* 02/28/25 16:46: POC Glucose 132 H 02/28/25 19:36: POC Glucose 140 H 02/28/25 21:10: POC Glucose 190 H 03/01/25 05:00: WBC 9.8, RBC 5.23, Hgb 14.5, Hct 44.6, MCV 85.3, MCH 27.7, MCHC 32.5, RDW 15.0, Plt Count 203, MPV 9.6, Neut % (Auto) 76.0, Lymph % (Auto) 14.0, [place] % (Auto) 7.3, Eos % (Auto) 1.6, Baso % (Auto) 0.6, Neut # (Auto) 7.4, Lymph # (Auto) 1.4, [place] # (Auto) 0.7, Eos # (Auto) 0.2, Baso # (Auto) 0.1, Sodium 138, Potassium 4.6, Chloride 109 H, Carbon Dioxide 23, Anion Gap 10.6, BUN 17, Creatinine 1.00, Estimated Creat Clear 85, Estimated GFR 75, Est GFR ( Amer) 90 D, Glucose 173 H, Calcium 8.6, Magnesium 2.3, Total Bilirubin 0.8, AST 24, ALT 21, Alkaline Phosphatase 94, Total Protein 7.0, Albumin 3.9, Globulin 3.1, Albumin/Globulin Ratio 1.3 03/01/25 06:06: POC Glucose 151 H I & O for Last 24 hours: Intake & Output 02/26/25 02/27/25 02/28/25 03/01/25 23:59 23:59 23:59 23:59 Intake Total 610 / 810 200 / 200 Output Total 550 / 550 1600 / 1600 Balance 60 / 260 -1400 / -1400 Weight 84.2 kg 84.2 kg Constitutional Constitutional: no acute distress *Routine HEENT Exam Head: Present normocephalic Eye: Present EOMI and PERRL ENT: Present mucous membranes moist *Routine Neck Exam Neck: Present supple; Absent lymphadenopathy *Routine Respiratory Exam Respiratory: Present CTA bilaterally *Routine Cardiovascular Exam Cardiovascular: Present RRR *Routine Abdominal Exam Abdominal: Present soft and normoactive bowel sounds; Absent tenderness *Routine Extremities Exam Extremities: Absent cyanosis, clubbing or edema *Routine Skin Exam Skin: Present warm; Absent rash *Routine Neurological Exam Neurological: Present alert and oriented X3 Results Data Completed and Pending Labs on day of discharge: Labs from last 24 hours 03/01/25 03/01/25 02/28/25 06:06 05:00 21:10 WBC 9.8 RBC 5.23 Hgb 14.5 Hct 44.6 MCV 85.3 MCH 27.7 MCHC 32.5 RDW 15.0 Plt Count 203 MPV 9.6 Neut % (Auto) 76.0 Lymph % (Auto) 14.0 [place] % (Auto) 7.3 Eos % (Auto) 1.6 Baso % (Auto) 0.6 Neut # (Auto) 7.4 Lymph # (Auto) 1.4 [place] # (Auto) 0.7 Eos # (Auto) 0.2 Baso # (Auto) 0.1 Activated Clotting Time Sodium 138 Potassium 4.6 Chloride 109 H Carbon Dioxide 23 Anion Gap 10.6 BUN 17 Creatinine 1.00 Estimated Creat Clear 85 Estimated GFR 75 Est GFR ( Amer) 90 D Glucose 173 H POC Glucose 151 H 190 H Calcium 8.6 Magnesium 2.3 Total Bilirubin 0.8 AST 24 ALT 21 Alkaline Phosphatase 94 Total Protein 7.0 Albumin 3.9 Globulin 3.1 Albumin/Globulin Ratio 1.3 02/28/25 02/28/25 02/28/25 19:36 16:46 12:46 WBC RBC Hgb Hct MCV MCH MCHC RDW Plt Count MPV Neut % (Auto) Lymph % (Auto) [place] % (Auto) Eos % (Auto) Baso % (Auto) Neut # (Auto) Lymph # (Auto) [place] # (Auto) Eos # (Auto) Baso # (Auto) Activated Clotting Time 359 H* Sodium Potassium Chloride Carbon Dioxide Anion Gap BUN Creatinine Estimated Creat Clear Estimated GFR Est GFR ( Amer) Glucose POC Glucose 140 H 132 H Calcium Magnesium Total Bilirubin AST ALT Alkaline Phosphatase Total Protein Albumin Globulin Albumin/Globulin Ratio DS: Diagnosis Discharge Diagnosis (1) PAD (peripheral artery disease): Status: Acute Code(s): I73.9 - Peripheral vascular disease, unspecified Meds Home Medications and Allergies Home Medications ?Medication ?Instructions ?Recorded ?Confirmed ?Type lancets 28 gauge (FreeStyle #100 ea 08/25/23 02/15/25 Rx Lancets) blood-glucose meter (FreeStyle #1 ea 09/23/23 02/15/25 Rx Lite Meter kit) blood sugar diagnostic (FreeStyle #100 ea 03/01/24 Rx Lite Strips) aspirin 81 mg chewable tablet 81 mg PO DAILY 30 days # 30 tabs 01/24/25 03/01/25 Rx empagliflozin 25 mg-linagliptin 5 1 tab PO DAILY 01/2403/01/25 History mg tablet (Glyxambi) sertraline 25 mg tablet 25 mg PO DAILY 01/24/2501/20 History metformin 1,000 mg tablet 1,000 mg PO DAILY 02/07/25 0 03/01/25 History metoprolol succinate 25 mg 25 mg PO DAILY #90 tabs 03/01/25 Rx tablet,extended release 24 hr (Toprol XL) atorvastatin 40 mg tablet 40 mg PO HS #90 tabs 5 03/01/25 Rx clopidogrel 75 mg tablet 75 mg PO DAILY #90 tabs 01/2703/01/25 Rx sacubitril 24 mg-valsartan 26 mg 1 tab PO BID #180 tab s 02/21/25 03/01/25 Rx tablet (Entresto) spironolactone 25 mg tablet 25 mg PO DAILY #90 tabs 03/01/25 Rx New Prescriptions to Start Prescriptions: Allergies Allergy/AdvReac Type Severity Reaction Status Date / Time semaglutide (From [facility]) Allergy Severe Blurry Verified 02/28/25 08:31 Vision Penicillins Allergy Mild Unknown Verified 02/28/25 08:31 allergy reaction Discharge Plan Disposition Patient Disposition: Home, Self-Care Condition: Fair Follow up Plan Follow up with: Lena Callahan APRN [Primary Care Provider, Medical] - 03/08/25 11:30 am Referral Note: F/U visit after hospital stay Petey Harrell MD [Staff Physician, Cardiology] - 03/07/25 9:45 am Prescriptions/Medication Reconciliation: Continued (DME) lancets [FreeStyle Lancets] 28 gauge misc See Rx Instructions .Route Qty: 100 0RF Rx Instructions: As directed daily (DME) blood-glucose meter [FreeStyle Lite Meter] Kit See Rx Instructions .Route Qty: 1 0RF Rx Instructions: As directed (DME) FreeStyle Lite Strips Strip See Rx Instructions .Route Qty: 100 3RF Rx Instructions: As directed metoprolol succinate [Toprol XL] 25 mg tablet extended release 24 hr 25 mg PO DAILY Qty: 90 3RF atorvastatin 40 mg tablet 40 mg PO HS Qty: 90 3RF clopidogrel 75 mg tablet 75 mg PO DAILY Qty: 90 3RF Entresto 24-26 mg tablet 1 tab PO BID Qty: 180 3RF spironolactone 25 mg tablet 25 mg PO DAILY Qty: 90 3RF aspirin 81 mg Tablet,Chewable 81 mg PO DAILY 30 Days Qty: 30 6RF sertraline 25 mg tablet 25 mg PO DAILY Glyxambi 25-5 mg tablet 1 tab PO DAILY metformin 1,000 mg tablet 1,000 mg PO DAILY Problem Reconciliation Problems Reviewed?: Yes Patient Discharge Instructions Patient Instructions: DI for Peripheral Vascular (Arterial) Disease, DI for Surgical Site Infection, DI for Moderate Sedation Print Language: Lao Providers Primary Care Provider: Lena Callahan Admit Provider: Patrice Kearney Attending Provider: Patrice Kearney
--- NOTE | 2025-03-03 10:43 | SW/DCPLANNER ---
Spoke with patient on the phone. Patient stated that he is doing good. Patient stated that he was not prescribed any new medicine. Patient stated that he is aware of his upcoming appointments. Patient stated that he has no concerns or questions at this time. Lauryn Willams
== END 2025-03-01 09:57 | disposition home or self-care (01) ==
LOC: CATHLAB 03-01 07:31 → ICU 03-01 07:31
PROVIDERS: Internal Medicine; Admitting Provider Student in an Organized Health Care Education/Training Program; PCP Nurse Practitioner Family; Visit Provider Student in an Organized Health Care Education/Training Program
PROC: (CPT 37224; principal; 2025-02-28 08:15)
DX: E11.51 Type 2 diabetes mellitus with diabetic peripheral angiopathy without gangrene (principal); I10 Essential (primary) hypertension; F41.9 Anxiety disorder, unspecified; F32.A Depression, unspecified; Z79.82 Long term (current) use of aspirin; Z79.84 Long term (current) use of oral hypoglycemic drugs; Z79.899 Other long term (current) drug therapy
CPT/HCPCS: 37224; 36415; 80048; 80053; 82962; 83735; 85025; 85347; 99152; 99153; C1725; C1769; C1887; C1894; G0378; J1200; J1644; J1650; J2704; J3010; J7040; Q9967

== ENCOUNTER 2025-04-03 14:04 | Outpatient (CLI) | payer MEDICARE, OTHER, SELFPAY ==
[2025-04-03 14:00] LABS: Hematocrit 52.1 % (42.0-52.0); Hemoglobin 15.8 g/dL (14.1-18.0); Immature Granulocytes % 0.5 %; Mean Corpuscular HGB Conc 30.3 g/dL (31.8-35.4); Mean Corpuscular Hemoglobin 26.1 pg (27.0-31.2); Mean Corpuscular Volume 86.1 fl (80-94); Nucleated Red Blood Cells % 0 %; Platelet Count 228 K/mm3 (142-424); Red Blood Count 6.05 M/mm3 (4.60-6.20); Red Cell Distribution Width-SD 47.1 fL; White Blood Count 8.4 K/mm3 (4.8-10.8)
--- OUTSIDE RECORDS SUMMARY | 2025-04-03 14:07 | XMS_ITS | Encounter Summary ---
Author Organization Healthcare Address [address] [facility] [place] [address] Care Team Providers Care Temper Mill Operator Name Role Phone Lena Callahan APRN Primary Care Provider +1- [phone] Encounter Details Date Type Department Care Team (Late st Contact Info) Description 02/05/2023 Ophth Exam [facility] [address] [place] [address] Anup Mg MD [address] [place] [address] Social History Tobacco Use Types Packs/Day Years Used Date Smoking Tobacco: Never Assessed Sex and Gender Information Value Date Recorded Sex Assigned at Not on file Legal Sex Male 8:52 PM EDT Gender Identity Not on file Sexual Orientation Not on file documented as of this encounter Functional Status * Calculated C-SSRS Risk Score (Lifetime/Recent) Answer Date of Assessment Author No Risk Indicated 02/05/2023 6:18 PM EDT Zeynep French RN * Question Answer Date of Assessment Author 1. Wish to be (Past 1 Month) No 023 6:18 PM EDT Zeynep French RN 2. Non-Specific Active Suici juan r Thoughts (Past 1 Month) No 02/05/2023 6:18 PM EDT Zeynep French RN 6. Suicidal Behavior (Lifetime) No 3 6:18 PM EDT Zeynep French RN documented as of this encounter Plan of Treatment Not on file documented as of this encounter Visit Diagnoses Not on filedocumented in this encounter Care Teams Temper Mill Operator Relationship Specialty Start Date End Date Lena Callahan, DIRECTOR [facility] [address] [id number] PCP - General 02/05/23 documented as of this encounter
--- OUTSIDE RECORDS SUMMARY | 2025-04-03 14:07 | XMS_ITS | Clinical Summary ---
Author Organization [facility] Address [address] [place] [address] Care Team Providers Care Accountant Budget Name Role Phone Lena Callahan JUAN F Primary Care Provider +1- [phone] Allergies No known active allergies Medications erythromycin (Romycin) 5 MG/GM ophthalmic ointment Apply 1 Application to affected eye(s) 4 (four) times a day. ~1 cm instilled into affected eye 4 times per day x 7 days (quantity = 3.5 g tube) 3.5 g 3 Active Social History Tobacco Use Types Packs/Day Years Used Date Smoking Tobacco: Never Assessed Sex and Gender Information Value Date Recorded Sex Assigned at Not on file Legal Sex Male 8:52 PM EDT Gender Identity Not on file Sexual Orientation Not on file Last Filed Vital Signs Vital Sign Reading Time Taken Comments Blood Pressure 128/84 02/05/2023 9:04 PM EDT Pulse 96 02/05/2023 9:04 PM EDT Temperature 36.5 C (97.7 F) 02/05/2023 4:50 PM EDT Respiratory Rate 18 02/05/2023 9:04 PM EDT Oxygen Saturation 96% 02/05/2023 9:04 PM EDT Inhaled Oxygen Concentration - - Weight - - Height - - Body Mass Index - - Plan of Treatment Health Maintenance Due Date Last Done Comments [facility]-Depression Screening 1957 [facility]-Medicare Annual Wellness (AWV) 1957 [facility]-/Child/Adol SDOH Screenings 1957 [facility]- SDOH Screenings 1975 [facility]-Adult SDOH Screenings 1975 [facility]-DTaP,Tdap,and Td Vaccine s (1 - Tdap) 1976 CT Colonography 2002 Colonoscopy 2002 FIT-DNA 2002 FIT 2002 FOBT 2002 Sigmoidoscopy 2002 [facility]-Colorectal Cancer Screening 2002 [facility]-Pneumococcal Vaccine: 50 + Years (1 of 1 - PCV) 2007 [facility]-Zoster Vaccines (1 of 2) 2007 [id number] Vaccine (3 - season) 2024 10/10/2021, 12/05/2020 [facility]-Influenza Vaccine (#1) 2025 [facility]-RSV Vaccine: 60+ Years o r (1 - 1-dose 75+ series) 2032 [facility]-Hepatitis C Screening Completed 02/05/2023 HPV Vaccines Aged Out No longer eligi ble based on patient's age to complete this topic [facility]-HIB Vaccines Aged Out No longer e ligible based on patient's age to complete this topic [facility]-Hepatitis A Vaccines Aged Out No longer eligible based on patient's age to complete this topic [facility]-IPV Vaccines Aged Out No longer e ligible based on patient's age to complete this topic [facility]-Rotavirus Vaccines Aged Out No lo nger eligible based on patient's age to complete this topic Procedures Procedure Name Priority Date/Time Associated Diagnosis Comments HEPATITIS C ANTIBODY - ED W/REFLEX TO HCV QUANT PCR STAT 02/05/2023 5:26 PM EDT from Last 3 Months or Most Recently Relevant to Health Maintenance Results * Hepatitis C Antibody - ED (02/05/2023 5:26 PM EDT) Hepatitis C Antibody Negative Negative 02/05/2023 6:39 PM EDT [facility] Blood Venous blood specimen / Unknown Venipuncture / Unknown 02/05/2023 5:26 PM EDT 02/05/2023 5:56 PM EDT Suresh Quarles MD LAB BLOOD ORDERABLES Final Result [facility] [address] [place] [address] from Last 3 Months or Most Recently Relevant to Health Maintenance Insurance MEDICARE Care Teams Accountant Budget Relationship Specialty Start Date End Date Lena Callahan APRN [address] [place] [address] PCP - General 02/05/23
[2025-04-03 14:30] LABS: Alanine Aminotransferase 22 U/L (12-78); Albumin Level 4.6 g/dl (3.5-5.0); Albumin/Globulin Ratio 1.5 (1.1-1.8); Alkaline Phosphatase 105 U/L (38-126); Anion Gap 19.9 mEq/L (5-15); Aspartate Amino Transferase 24 U/L (17-59); Bilirubin,Total 0.8 mg/dl (0.2-1.3); Blood Urea Nitrogen 14 mg/dl (9-20); Calcium 9.3 mg/dl (8.4-10.2); Carbon Dioxide 27 mmol/L (22.0-30.0); Chloride 99 mmol/L (98-107); Cholesterol 106 mg/dl (140-200); Creatinine,Serum 0.90 mg/dl (0.66-1.25); Estimated Glomerular Filt Rate 84 ml/min (>60); GFR (African American) 102 ML/MIN (>60); Globulin 3.0 g/dL (1.3-3.2); Glucose 164 mg/dl (74-100); HDL Cholesterol 30 mg/dl (40-60); Potassium 4.9 mmoL/L (3.5-5.1); Sodium 141 mmol/L (136-145); Total Protein,Serum 7.6 g/dl (6.3-8.2); Triglycerides 136 mg/dl (30-150)
[2025-04-03 15:00] LABS: Thyroid Stimulating Hormone 1.96 uIU/mL (0.465-4.68)
== END 2025-04-03 23:59 | disposition home or self-care (01) ==
LOC: LAB.DROPOF 14:05
PROVIDERS: PCP Nurse Practitioner Family; Visit Provider Nurse Practitioner Family
DX: E78.2 Mixed hyperlipidemia (principal); E11.9 Type 2 diabetes mellitus without complications; I73.9 Peripheral vascular disease, unspecified; I25.10 Atherosclerotic heart disease of native coronary artery without angina pectoris
CPT/HCPCS: 80053; 80061; 84443; 85025

== ENCOUNTER 2025-04-28 08:37 | Outpatient (CLI) | payer MEDICARE, OTHER, SELFPAY ==
--- OUTSIDE RECORDS SUMMARY | 2025-04-28 08:40 | XMS_ITS | Clinical Summary ---
Author Organization [facility] Address [address] [place] [address] Care Team Providers Care Adolescent Medicine Specialist Name Role Phone Lena Callahan JUAN F Primary Care Provider +1- [phone] Allergies No known active allergies Medications erythromycin [...] Screening 1955 [facility]-Medicare Annual Wellness (AWV) 1957 [facility]-Infant/Child/Adol SDOH Screenings 1957 [facility]- SDOH Screenings 1975 [facility]-Adult SDOH Screenings 1975 [facility]-DTaP,Tdap,and Td Vaccine s (1 - Tdap) 1976 CT Colonography 2002 Colonoscopy 2002 FIT-DNA 2002 FIT 2002 FOBT 2002 Sigmoidoscopy 2002 [facility]-Colorectal Cancer Screening 2002 [facility]-Pneumococcal Vaccine: 50 + Years (1 of 1 - PCV) 2007 [facility]-Zoster Vaccines (1 of 2) 2007 [id number] Vaccine (3 - season) 2024 10/10/2021, 12/05/2020 [...] Antibody Negative Negative 02/05/2023 6:39 PM EDT [facility] Blood Venous blood specimen / Unknown Venipuncture / Unknown 02/05/2023 5:26 PM EDT 02/05/2023 5:56 PM EDT Suresh Quarles MD LAB BLOOD ORDERABLES Final Result [facility] [address] [place] [address] from Last 3 Months or Most Recently Relevant to Health Maintenance Insurance MEDICARE Care Teams Adolescent Medicine Specialist Relationship Specialty Start Date End Date Lena Callahan APRN [address] [place] [address] PCP - General 02/05/23
--- OUTSIDE RECORDS SUMMARY | 2025-04-28 08:40 | XMS_ITS | Encounter Summary ---
Author Organization Healthcare Address [address] [facility] [place] [address] Care Team Providers Care Face Man Name Role Phone Lena Callahan APRN Primary Care Provider +1- [phone] Encounter Details Date Type Department Care Team (Late st Contact Info) Description 02/05/2023 Ophth Exam [facility] [address] [place] [address] Anup Mg MD [address] [place] [address] Social History Tobacco Use Types Packs/Day Years [...] on filedocumented in this encounter Care Teams Face Man Relationship Specialty Start Date End Date Lena Callahan, MANAGER [employer] [address] [id number] PCP - General 02/05/23 documented as of this encounter
--- NOTE | 2025-04-28 08:45 | CA_ITS ---
APPROVED REPORT EXAM: Limited 2D Echocardiogram Clinical Registered Nurse: Judy Rogers, RCS, RVS Ht: 5 ft 7 in Wt: 195lbs BSA: 2.00 BP: 144/74 mmHg Indications: HFrEF 2D Dimensions IVSd 1.30 cm LVEF (Visual) 35.00 % PWd 1.29 cm LVDd 6.49 cm LVDs 5.76 cm M-Mode Dimensions RVDd 3.12 cm (0.9-2.6) LVDd 6.38 cm (3.5-5.7) LVDs 5.53 cm (3.5-5.7) IVSd 1.41 cm (0.6-1.1) PWd 1.29 cm (0.6-1.1) EF (Teich) 31.10% EPSs 1.18 cm FS 15.10% EDV (Teich) 216.80 mL ESV (Teich) 149.30 mL Other Information Study Quality: Fair Conclusion This is a limited value evaluate for LV systolic function. Limited windows are obtained. The left ventricle is severely dilated. There is increased LV wall thickness. There is moderate to severe global hypokinesis. There is near akinesis of the anterior, anterolateral, and anteroseptal LV dunham. The septum is asynchronous. LVEF is 30% Electronically signed by : Soni Dickerson MD 04/28/2025 12:25:47
== END 2025-04-28 23:59 | disposition home or self-care (01) ==
LOC: RT 08:37
PROVIDERS: PCP Nurse Practitioner Family; Visit Provider Nurse Practitioner Family
DX: I11.0 Hypertensive heart disease with heart failure (principal); I50.20 Unspecified systolic (congestive) heart failure; I25.10 Atherosclerotic heart disease of native coronary artery without angina pectoris; R93.1 Abnormal findings on diagnostic imaging of heart and coronary circulation; R94.31 Abnormal electrocardiogram [ECG] [EKG]
CPT/HCPCS: 93308

== ENCOUNTER 2025-05-10 10:55 | Day surgery (SDC) | payer MEDICARE, OTHER, SELFPAY ==
[2025-05-10] VITALS (10 sets, daily range): BP systolic 120–154; BP diastolic 58–90; PULSE 76–103; RESP 18–22; O2SAT 90–93; BMI 28.5
--- NOTE | 2025-05-10 07:04 | IR_ITS ---
APPROVED REPORT Patient Location: Outpatient Claims Adjuster: JACQUELINE Carrasquillo RT (R) PROCEDURES 1. Pocket formation for AICD. 2. Placement of atrial sensing and pacing coil into the right atrial appendage. 3. Placement of a ventricular sensing, pacing and shocking coil in the right ventricular apex. 4. Permanent AICD placement. INDICATION Systolic Congestive Heart Failure, ejection < 35%, [place] Heart Assoication Class 3 Congestive Heart Failure, Ischemic cardiomyopathy Informed consent was obtained prior to the procedure. COMPLICATIONS NONE Estimated Blood Loss: LESS THAN 10 ML TECHNIQUE 1% Lidocaine with epinephrine used to anesthetized the left anterior aspect of the chest. Scalpel was used to make the initial cutaneous incision while electrocautery was used to dissect down tinto the fascia. The fascia was lifted off the pectoralis muscle and digitally manipulated creating a pocket for the defibrillator. The patient was then placed in Trendelenburg position and the subclavian vein was accessed 2 times via the Selinger technique. A 8 Dutch sheath was placed under fluoroscopic guidance into the subclavian vein. The dilator was removed from the sheath. Using fluoroscopic guidance, the ventricular lead was placed into the right ventricular apex, screwed and secured into place. Electronic interrogation proved acceptable thresholds and voltage within the lead. Using 3-0 silk, the ventricular lead was then secured into place and sheath peeled away. A 6 Dutch fresh sheath and dilator was placed over the existing wire. Using fluoroscopic guidance, the atrial lead was then placed into the right atrial appendage and screwed and secured in place. Electrical interrogation demonstrated acceptable thresholds and voltage number. The atrial lead was then secured into place using 3-0 silk and sheath peeled away. 1 gram of Ancef was used to flush the pocket. All 3 leads were connected to generator and tested via computer. The defibrillator then secured to the fascia. Monocryl was used to close the subcutaneous layers while wilfred were used to close the cutaneous layer. A pressure dressing was placed and the patient was transferred to the postop holding area in stable condition for postoperative care. INTERROGATION Generator Model number: Anne GÓMEZ [id number] Generator Serial number: [id number] Atrial lead model number: Tendril STS, 52cm, [id number] Atrial lead serial number: [id number] P-wave: 1.5-2.0mV Impedance: 490 ohms Threshold: 1.0V@0.5ms Right Ventricular lead model number: Robert 58cm, [id number] Right Ventricular lead serial number: [id number] R-wave: >12mV Impedance: 553 ohms Threshold: 0.9V@0.5ms Pacing Parameters: Mode: DDD Base/Max Track: 60 ppm / 130 ppm No diaphragmatic stimulation at 10 volts. IMPRESSION 1. Successful pocket formation for AICD. 2. Successful placement of atrial sensing and pacing coil into the right atrial appendage. 3. Successful placement of a ventricular sensing, pacing and shocking coil in the right ventricular apex. 4. Successful permanent AICD placement. PLAN 1. Postop wound care. Electronically signed by : Petey Harrell MD 05/10/2025 15:34:10
[2025-05-10 11:17] LABS: Hematocrit 53.4 % (42.0-52.0); Hemoglobin 16.3 g/dL (14.1-18.0); Immature Granulocytes % 0.1 %; Mean Corpuscular HGB Conc 30.5 g/dL (31.8-35.4); Mean Corpuscular Hemoglobin 25.9 pg (27.0-31.2); Mean Corpuscular Volume 84.9 fl (80-94); Nucleated Red Blood Cells % 0 %; Platelet Count 225 K/mm3 (142-424); Red Blood Count 6.29 M/mm3 (4.60-6.20); Red Cell Distribution Width-SD 45.5 fL; White Blood Count 8.4 K/mm3 (4.8-10.8)
[2025-05-10 11:32] LABS: Chloride 103 mmol/L (98-107); Potassium 4.5 mmoL/L (3.5-5.1); Sodium 141 mmol/L (136-145)
[2025-05-10 11:35] LABS: Anion Gap 12.5 mEq/L (5-15); Blood Urea Nitrogen 11 mg/dl (9-20); Carbon Dioxide 30 mmol/L (22.0-30.0); Creatinine Clearance Estimated 83 mL/min (50-200); Creatinine,Serum 0.90 mg/dl (0.66-1.25); Estimated Glomerular Filt Rate 84 ml/min (>60); GFR (African American) 102 ML/MIN (>60)
[2025-05-10 11:36] LABS: Calcium 9.6 mg/dl (8.4-10.2); Glucose 165 mg/dl (74-100)
--- NOTE | 2025-05-10 12:47 | P.PNANES_ITS ---
[facility] Disclaimer: The information contained in this section may have been updated after the patient was seen, as this information can be updated by other users. Medical History (Updated 05/04/25 @ 13:25 by Thalia Winters) Chronic systolic (congestive) heart failure Coronary artery disease History of left heart catheterization S/P angiogram of extremity Screening for prostate cancer Abnormal ECG Edema Claudication Tendinopathy of right rotator cuff Hypertension Diabetes High cholesterol Surgical History History of angioplasty H/O rotator cuff surgery Social History Smoking Status: Current every day smoker tobacco type: cigars alcohol intake: never substance use type: denies use current occupational status: retired Travel in the last 8 weeks?: None Have you lived/traveled outside US in past 30 days?: No Contact w/someone who lives/traveled outside US past 30 days?: No Exposure to someone with infectious disease in past 14 days?: No Do you have a fever (greater than 100.4 F or 38 C)?: No Have you tested positive for COVID-19?: No Exposed to someone with COVID-19 in past 14 days?: No Do you have a sore throat?: No Do you have a cough?: No Do you have any weakness?: No Do you have any diarrhea?: No Are you experiencing any unusual bleeding?: No Do you have any muscle aches/pain?: No Do you have any abdominal pain?: No Are you experiencing loss of taste or smell?: No [place] Anesthesia Checklist Patient Identification Patient Identification: Arm Band and Verbal (Name & ) Structural Data Admitted From: Home Planned Operative Procedure/s: AICD placement Consent for Planned Operative Procedure(s) Verified: Yes Verified Documents: Surgical Consent NPO Status Verified Time NPO: 00:00 Additional verifications Anesthesia Reactions: No Airway Assessment Mallampati Score:: Class II C-Spine Mobility Assessed: Yes TMJ Mobility Assessed: Yes Dentition: Good Dentition Neurological Assessment Level of Consciousness: Awake, Alert and Appropriate Hx Seizures: No Numbness or tingling in extremities: No Anesthesia Plan Anesthesia Risk discussed: Yes Anesthesia Plan: Verified ASA Class: IV Anesthesia Type: MAC
[2025-05-10] MEDS: CLINDAMYCIN PHOSPHATE/D5W 900 MG/50 ML PIGGYBACK 100 MG IV (13:03)
[2025-05-10] MEDS: LIDOCAINE 1% W/EPI 1:100,000 20ML VIAL 20 ML IJ (13:04)
[2025-05-10] MEDS: CLINDAMYCIN PHOSPHATE 900 MG in 0.9 % SODIUM CHLORIDE 100 ML 100 MG TP (13:13)
--- NOTE | 2025-05-10 14:23 | XR_ITS ---
FINAL REPORT CLINICAL HISTORY: Confirm pacemaker/AID placement COMPARISON: None FINDINGS: A single frontal view of the chest was obtained. No acute pulmonary opacity is present. There is no evidence of effusion or pneumothorax. There is a 3 lead left subclavian pacer device. Mediastinum otherwise unremarkable. Heart size is normal. IMPRESSION: Left-sided pacer placement without pneumothorax. Reviewed, Interpreted and Dictated by Elke López MD Transcribed by Beverly Germain Authenticated and [facility]
== END 2025-05-10 15:37 | disposition home or self-care (01) ==
PROVIDERS: PCP Nurse Practitioner Family; Visit Provider Internal Medicine
PROC: 0JH608Z Insertion of Defibrillator Generator into Chest Subcutaneous Tissue and Fascia, Open Approach (ICD-10-PCS; CPT 33249; principal; 2025-05-10 09:45)
DX: I25.5 Ischemic cardiomyopathy (principal); I50.22 Chronic systolic (congestive) heart failure; I11.0 Hypertensive heart disease with heart failure; R06.09 Other forms of dyspnea; R94.31 Abnormal electrocardiogram [ECG] [EKG]; I25.10 Atherosclerotic heart disease of native coronary artery without angina pectoris; E11.9 Type 2 diabetes mellitus without complications; E78.2 Mixed hyperlipidemia; I73.9 Peripheral vascular disease, unspecified; Z95.5 Presence of coronary angioplasty implant and graft; F17.290 Nicotine dependence, other tobacco product, uncomplicated; Z79.82 Long term (current) use of aspirin; Z79.84 Long term (current) use of oral hypoglycemic drugs; Z79.85 Long-term (current) use of injectable non-insulin antidiabetic drugs; Z79.02 Long term (current) use of antithrombotics/antiplatelets; Z79.899 Other long term (current) drug therapy; Z88.0 Allergy status to penicillin; Z88.8 Allergy status to other drugs, medicaments and biological substances
CPT/HCPCS: 33249; 36415; 71045; 80048; 85025; C1721; C1895; C1898; J0736; J1200; J2003; J2004; J2704; J3010